=== PATIENT | male | born 1960 | race African-American/Black ===

== ENCOUNTER 2017-09-08 12:35 | Inpatient (IN) | payer OTHER ==
[2017-09-08 14:14] VITALS: BMI 28.8
--- NOTE | 2017-09-08 15:29 | HP ---
CIWA Score - CIWA Score Nausea/Vomitin Muscle Tremors: 4-Moderate,w/Arms Extend Anxiety: 2 Agitation: 1-Slight > Activity Paroxysmal Sweats: 3 Orientation: 0-Oriented Tacttile Disturbances: 1-Very Mild Itch/Numbness Auditory Disturbances: 0-None Visual Disturbances: 3-Moderate Sensitivity Headache: 2-Mild CIWA-Ar Total Score: 21 Admission ROS BHS - HPI Chief Complaint: "I just want to stop drinking and get it together.' Pt. is here to Detox from Alcohol. Allergies/Adverse Reactions: Allergies Allergy/AdvReac Type Severity Reaction Status Date / Time No Known Allergies Allergy Verified 09/08/17 14:58 History of Present Illness: Pt. is a 56 YO male here to detox from Alcohol. Pt. has had multiple previous Detox admissions at [facility] in the past and has signed out AMA on several of those admissions. Last Detox admission at [facility]: 08/2016. Exam Limitations: No Limitations - Ebola screening Have you traveled outside of the country in the last 21 days: No Have you had contact with anyone from an Ebola affected area: No Have you been sick,other than usual withdrawal symptoms: No Do you have a fever: No - Review of Systems Constitutional: Diaphoresis, Loss of Appetite, Malaise, Night Sweats, Changes in sleep, Unexplained wgt Loss (Lost approx. 15 lbs. over the last 1 month.) EENT: reports: Nose Congestion, Sinus Pressure Respiratory: reports: No Symptoms reported Cardiac: reports: No Symptoms Reported GI: reports: Diarrhea, Nausea, Poor Appetite, Vomiting : reports: No Symptoms Reported Musculoskeletal: reports: No Symptoms Reported Integumentary: reports: No Symptoms Reported Neuro: reports: Headache, Tremors Endocrine: reports: No Symptoms Reported Hematology: reports: No Symptoms Reported Psychiatric: reports: Judgement Intact, Mood/Affect Appropiate, Orientated x3, Anxious Other Systems: Reviewed and Negative Patient History - Patient Medical History Hx Anemia: No Hx Asthma: No Hx Chronic Obstructive Pulmonary Disease (COPD): No Hx Cancer: No Hx Cardiac Disorders: No Hx Congestive Heart Failure: No Hx Hypertension: Yes (Stopped taking Lisinopril approx. 1 month ago B/C he ran out.) Hx Hypercholesterolemia: No Hx Pacemaker: No HX Cerebrovascular Accident: No Hx Seizures: No Hx Dementia: No Hx Diabetes: No Hx Gastrointestinal Disorders: No Hx Liver Disease: No Hx Genitourinary Disorders: No Hx Sexually Transmitted Disorders: No Hx Renal Disease (ESRD): No Hx Thyroid Disease: No Hx Human Immunodeficiency Virus (HIV): No (Last tested: 04/2016: NEGATIVE.) Hx Hepatitis C: No (Last tested: 06/2015: NEGATIVE.) Hx Depression: No Hx Suicide Attempt: No (PATIENT DENIES CURRENT SI / HI.) Hx Bipolar Disorder: No Hx Schizophrenia: No Other Medical History: DENIES. - Patient Surgical History Past Surgical History: No Hx Neurologic Surgery: No Hx Cataract Extraction: No Hx Cardiac Surgery: No Hx Lung Surgery: No Hx Breast Surgery: No Hx Breast Biopsy: No Hx Abdominal Surgery: No Hx Appendectomy: No Hx Cholecystectomy: No Hx Genitourinary Surgery: No Hx Section: No Hx Orthopedic Surgery: No Anesthesia Reaction: No - PPD History Previous Implant?: Yes Documented Results: Negative w/proof Implanted On Prior [facility] Admission?: Yes Date: 02/27/16 Results: 0 mm PPD to be Administered?: Yes - Reproductive History Patient is a Female of Child Bearing Age (11 -55 yrs old): No (PATIENT IS MALE.) - Smoking Cessation Smoking history: Current some day smoker Have you smoked in the past 12 months: Yes Aproximately how many cigarettes per day: 1 Cigars Per Day: 0 Hx Chewing Tobacco Use: No Initiated information on smoking cessation: Yes 'Breaking Loose' booklet given: 09/08/17 (GIVEN ON UNIT.) - Substance & Tx. History Hx Alcohol Use: Yes Hx Substance Use: Yes Substance Use Type: Alcohol, Cocaine Hx Substance Use Treatment: Yes (Previous Detox admssions at [facility]; Last: 2015.) - Substances Abused Crack Route: Smoking Frequency: Daily Amount used: $30 Age of first use: 31 Date of Last Use: 09/08/17 Alcohol-vodka/beer Route: Oral Frequency: Daily Amount used: 2 pts./2-6 pks. Age of first use: 19 Date of Last Use: 09/08/17 Family Disease History - Family Disease History Family Disease History: Heart Disease: Mother (OA, Alcoholism; HTN), Other: Father (alcoholism), Mother Admission Physical Exam BHS - Vital Signs Vital Signs: Vital Signs - 24 hr 09/08/17 14:13 Temperature 97.4 F L Pulse Rate 108 H Respiratory 20 Rate Blood Pressure 139/91 - Physical General Appearance: Yes: No Apparent Distress, Nourished, Appropriately Dressed , Tremorous, Anxious HEENTM: Yes: Hearing grossly Normal, Normocephalic, Normal Voice, SERGEI, Pharynx Normal Respiratory: Yes: Chest Non-Tender, Lungs Clear, No Respiratory Distress, No Accessory Muscle Use Neck: Yes: No masses,lesions,Nodules, Supple, Trachea in good position Breast: Yes: Breast Exam Deferred Cardiology: Yes: Regular Rhythm, Regular Rate, S1, S2 Abdominal: Yes: Normal Bowel Sounds, Non Tender, Flat, Soft Genitourinary: Yes: Within Normal Limits Back: Yes: Normal Inspection Musculoskeletal: Yes: full range of Motion, Gait Steady Extremities: Yes: Normal Range of Motion, Non-Tender, Tremors Neurological: Yes: Fully Oriented, Alert, Normal Mood/Affect, Normal Response Integumentary: Yes: Normal Color, Dry, Warm Lymphatic: Yes: Within Normal Limits - Diagnostic (1) Alcohol dependence with uncomplicated withdrawal Current Visit: Yes Status: Acute (2) Hypertension Current Visit: Yes Status: Chronic Qualifiers: Hypertension type: essential hypertension Qualified Code(s): I10 - Essential (primary) hypertension; I10 - Essential (primary) hypertension; I10 - Essential (primary) hypertension (3) Nicotine dependence Current Visit: Yes Status: Chronic Qualifiers: Nicotine product type: cigarettes Substance use status: uncomplicated Qualified Code(s): F17.210 - Nicotine dependence, cigarettes, uncomplicated; F17.210 - Nicotine dependence, cigarettes, uncomplicated (4) Cocaine dependence, uncomplicated Current Visit: Yes Status: Acute Cleared for Admission [facility] - Detox or Rehab [facility] Level of Care: Medically Managed (PATIENT ENCOURAGED TO COMPLETE DETOX REGIMEN WHILE ADMITTED FOR DETOX AND ADVISED THAT IF HE SIGNS OUT AGAINST MEDICAL ADVICE AGAIN FOR THIS DETOX ADMISSION, THEN IT MIGHT JEOPARDIZE POSSIBLE FUTURE DETOX ADMISSIONS (IF NECESSARY). PATIENT VERBALIZED UNDERSTANDING OF RECOMMENDATION.) Detox Regimen/Protocol: Librium S Breath Alcohol Content Breath Alcohol Content: 0 Urine Drug Screen - Results Drug Screen Negative: No Urine Drug Screen Results: CRISTOFER-Cocaine, BZO-Benzodiazepines
[2017-09-08] MEDS ORDERED: IBUPROFEN 400 MG TABLET (FP) PO PRN (15:53)
[2017-09-08] MEDS ORDERED: MAGNESIUM CITRATE 300 ML BOTTLE PO PRN (15:53)
[2017-09-08] MEDS ORDERED: MENTHOL/PHENOL 1 EACH UD MM PRN (15:53)
[2017-09-08] MEDS ORDERED: ACETAMINOPHEN 325 MG TABLET (FP) PO PRN (15:53)
[2017-09-08] MEDS ORDERED: hydrOXYzine PAMOATE 50 MG CAPSULE (FP) PO PRN (15:53)
[2017-09-08] MEDS ORDERED: NICOTINE POLACRILEX 2 MG GUM BC PRN (15:53)
[2017-09-08] MEDS ORDERED: LOPERAMIDE HCL 2 MG CAPSULE PO PRN (15:53)
[2017-09-08] MEDS ORDERED: MAG HYDROX/AL HYDROX/SIMETH 30 ML UNIT-DOSE CUP PO PRN (15:53)
[2017-09-08] MEDS ORDERED: P-EPHED 60MG/TRIPROLIDI 2.5MG TABLET PO PRN (15:53)
[2017-09-08] MEDS ORDERED: chlordiazePOXIDE HCL 25 MG CAPSULE PO PRN (15:53)
[2017-09-08] MEDS ORDERED: diphenhydrAMINE HCL 50 MG CAPSULE PO PRN (15:53)
[2017-09-08] MEDS ORDERED: guaiFENesin/D-METHORPHAN HB 10 ML UNIT-DOSE CUPS PO PRN (15:53)
[2017-09-08] MEDS ORDERED: chlordiazePOXIDE HCL 25 MG CAPSULE PO ONE (15:53)
[2017-09-08] MEDS ORDERED: MAGNESIUM HYDROX 2400MG/30ML ORAL SUSPENSION 30 ML CUP PO PRN (15:53)
[2017-09-08] MEDS ORDERED: TETRAHYDROZOLINE HCL 1 DROP DROPS OU PRN (15:57)
[2017-09-08] MEDS: chlordiazePOXIDE HCL 25 MG CAPSULE PO SCH ×2 (17:26→22:23)
[2017-09-08] MEDS: ASPIRIN 81 MG CHEWABLE TABLETS PO SCH (17:26)
[2017-09-08] MEDS: LISINOPRIL 20 MG TABLET (FP) PO SCH (17:26)
[2017-09-08 22:22] LABS: URINE APPEARANCE SLCLOUDY; URINE BILIRUBIN NEGATIVE (NEGATIVE); URINE BLOOD NEGATIVE (NEGATIVE); URINE COLOR YELLOW; URINE GLUCOSE (UA) NEGATIVE (NEGATIVE); URINE KETONE NEGATIVE (NEGATIVE); URINE NITRITE NEGATIVE (NEGATIVE); URINE PROTEIN 1+ (NEGATIVE); URINE UROBILINOGEN NEGATIVE mg/dL (0.2-1.0)
[2017-09-08] MEDS: THIAMINE HCL 100 MG TABLET (FP) PO SCH (22:23)
[2017-09-08 23:46] LABS: URINE MUCUS 2+; URINE WBC FEW /hpf (3-5)
[2017-09-08 23:47] LABS: URINE SPERM FEW
[2017-09-09] MEDS: chlordiazePOXIDE HCL 25 MG CAPSULE PO SCH ×4 (06:36→22:29)
[2017-09-09 10:11] LABS: MCH 30.5 pg (25.7-33.7); MCHC 33.2 g/dl (32.0-35.9); MEAN CELL VOLUME 92.1 fl (80-96); MEAN PLT VOLUME 8.4 fl (7.5-11.1); PLATELET COUNT 182 K/MM3 (134-434); RDW 12.9 % (11.9-15.9); WHITE BLOOD COUNT 4.9 K/mm3 (4.0-10.0)
[2017-09-09 10:28] LABS: URINE LEUK ESTERASE Negative (NEGATIVE)
[2017-09-09] MEDS: PRENATAL VITAMINS W/ FOLIC ACID TABLET (FP) PO SCH (10:46)
[2017-09-09] MEDS: LISINOPRIL 20 MG TABLET (FP) PO SCH (10:46)
[2017-09-09] MEDS: ASPIRIN 81 MG CHEWABLE TABLETS PO SCH (10:46)
--- NOTE | 2017-09-09 10:48 | EKG ---
Test Reason : Blood Pressure : / mmHG Vent. Rate : 087 BPM Atrial Rate : 087 BPM P-R Int : 182 ms QRS Dur : 088 ms QT Int : 412 ms P-R-T Axes : 054 -22 045 degrees QTc Int : 495 ms NORMAL SINUS RHYTHM SEPTAL INFARCT , AGE UNDETERMINED ABNORMAL ECG NO PREVIOUS ECGS AVAILABLE Confirmed by MARIA ANTONIA COOK, DEE ([id number]) on 09/09/2017 10:47:47 AM Referred By: Confirmed By:DEE EM MD
[2017-09-09 11:06] LABS: ALBUMIN 2.9 g/dl (3.4-5.0); ALK PHOS 71 U/L (45-117); ANION GAP 8 (8-16); BILIRUBIN,TOTAL 0.8 mg/dL (0.2-1.0); CALCIUM 8.7 mg/dL (8.5-10.1); CO2 26 mmol/L (21-32); CREATININE 0.8 mg/dL (0.7-1.3); GLUCOSE,RANDOM 96 mg/dL (74-106); SGOT/AST 22 U/L (15-37); SGPT/ALT 34 U/L (12-78); TOT PROT 5.7 g/dl (6.4-8.2)
--- NOTE | 2017-09-09 11:20 | PN ---
[facility] CIWA - CIWA Score Nausea/Vomitin-No Nausea/No Vomiting Muscle Tremors: 4-Moderate,w/Arms Extend Anxiety: 4-Mod. Anxious/Guarded Agitation: 4-Moderately Restless Paroxysmal Sweats: 1-Minimal Palms Moist Orientation: 0-Oriented Tacttile Disturbances: 3-Moderate Itch/Numb/Burn Auditory Disturbances: 0-None Visual Disturbances: 0-None Headache: 0-None Present CIWA-Ar Total Score: 16 S Progress Note (SOAP) Subjective: ANXIETY,SWEATS,SLIGHT IRRITABILITY,SLEEPLESS NIGHT--WANTS AMBIEN AND STATES "[employer] DON'T WORK,AMBIEN WORKS FOR ME". DENIES PSYCH HX AND DECLINED PSYCH MANAGEMENT FOR INSOMNIA. ALERT O X 3. OOB EATING IN DAYROOM, GAIT STEADY. Objective: 09/09/17 11:19 Vital Signs Temperature 97.5 F L 09/09/17 09:14 Pulse Rate 71 09/09/17 09:14 Respiratory Rate 18 09/09/17 09:14 Blood Pressure 140/89 09/09/17 09:14 O2 Sat by Pulse Oximetry (%) Laboratory Last Values WBC 4.9 K/mm3 (4.0-10.0) D 09/09/17 07:00 RBC 4.12 M/mm3 (4.00-5.60) 09/09/17 07:00 Hgb 12.6 GM/dL (11.7-16.9) 09/09/17 07:00 Hct 38.0 % (35.4-49) 09/09/17 07:00 MCV 92.1 fl (80-96) 09/09/17 07:00 MCH 30.5 pg (25.7-33.7) 09/09/17 07:00 MCHC 33.2 g/dl (32.0-35.9) 09/09/17 07:00 RDW 12.9 % (11.9-15.9) 09/09/17 07:00 Plt Count 182 K/MM3 (134-434) 09/09/17 07:00 MPV 8.4 fl (7.5-11.1) D 09/09/17 07:00 Sodium 142 mmol/L (136-145) 09/09/17 07:00 Potassium 3.8 mmol/L (3.5-5.1) 09/09/17 07:00 Chloride 108 mmol/L (98-107) H 09/09/17 07:00 Carbon Dioxide 26 mmol/L (21-32) 09/09/17 07:00 Anion Gap 8 (8-16) 09/09/17 07:00 BUN 10 mg/dL (7-18) 09/09/17 07:00 Creatinine 0.8 mg/dL (0.7-1.3) 09/09/17 07:00 Creat Clearance w eGFR > 60 (>60) 09/09/17 07:00 Random Glucose 96 mg/dL (74-106) 09/09/17 07:00 Calcium 8.7 mg/dL (8.5-10.1) 09/09/17 07:00 Total Bilirubin 0.8 mg/dL (0.2-1.0) 09/09/17 07:00 AST 22 U/L (15-37) 09/09/17 07:00 ALT 34 U/L (12-78) D 09/09/17 07:00 Alkaline Phosphatase 71 U/L (45-117) 09/09/17 07:00 Total Protein 5.7 g/dl (6.4-8.2) L D 09/09/17 07:00 Albumin 2.9 g/dl (3.4-5.0) L D 09/09/17 07:00 Urine Color Yellow 09/08/17 22:10 Urine Appearance Slcloudy 09/08/17 22:10 Urine pH 6.0 (5.0-8.0) 09/08/17 22:10 Ur Specific [place] 1.025 (1.005-1.025) 09/08/17 22:10 Urine Protein 1+ (NEGATIVE) H 09/08/17 22:10 Urine Glucose (UA) Negative (NEGATIVE) 09/08/17 22:10 Urine Ketones Negative (NEGATIVE) 09/08/17 22:10 Urine Blood Negative (NEGATIVE) 09/08/17 22:10 Urine Nitrite Negative (NEGATIVE) 09/08/17 22:10 Urine Bilirubin Negative (NEGATIVE) 09/08/17 22:10 Urine Urobilinogen Negative mg/dL (0.2-1.0) 09/08/17 22:10 Ur Leukocyte Esterase Negative (NEGATIVE) 09/08/17 22:10 Urine WBC Few /hpf (3-5) 09/08/17 22:10 Urine Mucus 2+ 09/08/17 22:10 Assessment: 09/09/17 11:19 WITHDRAWAL SX Plan: CONTINUE DETOX INCREASE PO FLUIDS. AMBIEN 10 MG PO AT BEDTIME PRN X 3 DOSES.
[2017-09-09 15:16] LABS: HIV 1 & 2 AB NEGATIVE; HIV 1 AGp24 NEGATIVE
[2017-09-09] MEDS ORDERED: ZOLPIDEM TARTRATE 10 MG TABLET (PARK CARE ONLY) PO PRN (22:00)
[2017-09-09] MEDS: THIAMINE HCL 100 MG TABLET (FP) PO SCH (22:29)
[2017-09-10] MEDS ORDERED: diazePAM 5 MG TABLET PO SCH ×2 (06:00→09:32)
[2017-09-10] MEDS: chlordiazePOXIDE HCL 25 MG CAPSULE PO SCH (06:20)
[2017-09-10] MEDS ORDERED: chlordiazePOXIDE HCL 25 MG CAPSULE PO SCH (09:23)
--- NOTE | 2017-09-10 09:23 | PN ---
BHS CIWA - CIWA Score Nausea/Vomitin-No Nausea/No Vomiting Muscle Tremors: None Anxiety: 1-Mildly Anxious Agitation: 1-Slight > Activity Paroxysmal Sweats: No Perspiration Orientation: 0-Oriented Tacttile Disturbances: 0-None Auditory Disturbances: 0-None Visual Disturbances: 0-None Headache: 0-None Present CIWA-Ar Total Score: 2 BHS Progress Note (SOAP) Subjective: slight anxiety, thinks libirum is to high, interrtuped sleep Objective: 09/10/17 09:22 Vital Signs - 24 hr 09/09/17 09/09/17 09/09/17 14:18 17:42 22:23 Temperature 96.8 F L 98.1 F 98.3 F Pulse Rate 81 74 95 H Respiratory 18 18 18 Rate Blood Pressure 140/91 116/72 120/89 09/10/17 09/10/17 09/10/17 00:37 03:41 06:15 Temperature 96.9 F L Pulse Rate 69 Respiratory 18 18 16 Rate Blood Pressure 146/99 elevated bp Assessment: 09/10/17 09:22 withdrawal sx Plan: cont detox, fluids, will lower dose scheduled ATC.
--- NOTE | 2017-09-10 09:24 | PN ---
BHS Progress Note Note: patient reports stomach upset with libirum would lie to switch to valium
[2017-09-10] MEDS: PRENATAL VITAMINS W/ FOLIC ACID TABLET (FP) PO SCH (10:47)
[2017-09-10] MEDS: ASPIRIN 81 MG CHEWABLE TABLETS PO SCH (10:47)
[2017-09-10] MEDS: LISINOPRIL 20 MG TABLET (FP) PO SCH (10:47)
[2017-09-10 13:47] VITALS: BP 131/90; PULSE 82; TEMP 98.1
--- NOTE | 2017-09-10 15:30 | DS ---
[facility] Detox Discharge Summary Admission Date: 09/08/17 Discharge Date: 09/10/17 - History Present History: Alcohol Dependence, Cocaine Dependence Additional Comments: PATIENT DOES NOT WISH TO STAY TO COMPLETE DETOX REGIMEN. RISKS OF LEAVING DETOX UNIT PRIOR TO COMPLETION OF DETOX REGIMEN DISCUSSED WITH PATIENT. PATIENT OFFERED PRESCRIPTIONS FOR MEDICATIONS TAKEN PRIOR TO ADMISSION TO DETOX; HOWEVER , PATIENT DECLINED. PATIENT LEFT DETOX UNIT IN STABLE MEDICAL CONDITION. Pertinent Past History: Hypertension. - Physical Exam Results Vital Signs: Vital Signs Temperature 98.1 F 09/10/17 13:47 Pulse Rate 82 09/10/17 13:47 Respiratory Rate 18 09/10/17 13:47 Blood Pressure 131/90 09/10/17 13:47 O2 Sat by Pulse Oximetry (%) Pertinent Admission Physical Exam Findings: WITHDRAWAL SYMPTOMS. Laboratory Tests 09/08/17 09/08/17 09/09/17 09:00 22:10 07:00 WBC RBC Hgb Hct MCV MCH MCHC RDW Plt Count MPV Sodium Potassium Chloride Carbon Dioxide Anion Gap BUN Creatinine Creat Clearance w eGFR Random Glucose Calcium Total Bilirubin AST ALT Alkaline Phosphatase Total Protein Albumin Urine Color Yellow Urine Appearance Slcloudy Urine pH 6.0 Ur Specific [place] 1.025 Urine Protein 1+ H Urine Glucose (UA) Negative Urine Ketones Negative Urine Blood Negative Urine Nitrite Negative Urine Bilirubin Negative Urine Urobilinogen Negative Ur Leukocyte Esterase Negative Urine WBC Few Urine Mucus 2+ RPR Titer Hepatitis C Antibody <0.1 HIV 1&2 Antibody Screen Negative HIV P24 Antigen Negative 09/09/17 09/09/17 09/09/17 07:00 07:00 07:00 WBC 4.9 D RBC 4.12 Hgb 12.6 Hct 38.0 MCV 92.1 MCH 30.5 MCHC 33.2 RDW 12.9 Plt Count 182 MPV 8.4 D Sodium 142 Potassium 3.8 Chloride 108 H Carbon Dioxide 26 Anion Gap 8 BUN 10 Creatinine 0.8 Creat Clearance w eGFR > 60 Random Glucose 96 Calcium 8.7 Total Bilirubin 0.8 AST 22 ALT 34 D Alkaline Phosphatase 71 Total Protein 5.7 L D Albumin 2.9 L D Urine Color Urine Appearance Urine pH Ur Specific [place] Urine Protein Urine Glucose (UA) Urine Ketones Urine Blood Urine Nitrite Urine Bilirubin Urine Urobilinogen Ur Leukocyte Esterase Urine WBC Urine Mucus RPR Titer Nonreactive Hepatitis C Antibody HIV 1&2 Antibody Screen HIV P24 Antigen LABS NOTED. - Treatment Hospital Course: Detoxed Safely - Diagnosis (1) Alcohol dependence with uncomplicated withdrawal Current Visit: Yes Status: Acute (2) Hypertension Current Visit: Yes Status: Chronic Qualifiers: Hypertension type: essential hypertension Qualified Code(s): I10 - Essential (primary) hypertension; I10 - Essential (primary) hypertension; I10 - Essential (primary) hypertension (3) Nicotine dependence Current Visit: Yes Status: Chronic Qualifiers: Nicotine product type: cigarettes Substance use status: uncomplicated Qualified Code(s): F17.210 - Nicotine dependence, cigarettes, uncomplicated; F17.210 - Nicotine dependence, cigarettes, uncomplicated (4) Cocaine dependence, uncomplicated Current Visit: Yes Status: Acute - AMA Did Patient Leave Against Medical Advice: Yes (PATIENT DOES NOT WISH TO STAY TO COMPLETE DETOX REGIMEN.)
[2017-09-10] MEDS ORDERED: chlordiazePOXIDE 5 MG CAPSULE PO SCH (17:00)
[2017-09-11] MEDS ORDERED: diazePAM 5 MG TABLET PO SCH ×3 (10:00)
[2017-09-11] MEDS ORDERED: chlordiazePOXIDE HCL 10 MG CAPSULE PO SCH (17:00)
[2017-09-12] MEDS ORDERED: diazePAM 5 MG TABLET PO SCH (10:00)
== END 2017-09-10 15:24 | disposition left against medical advice (07) | DRG 770 ==
LOC: YASAS 12:35 → Y3N 15:55
PROVIDERS: ADMIT Internal Medicine; ATTEND Internal Medicine
PROC: HZ2ZZZZ Detoxification Services for Substance Abuse Treatment (ICD-10-PCS; principal; 2017-09-08)
DX: F10.230 Alcohol dependence with withdrawal, uncomplicated (principal); F14.20 Cocaine dependence, uncomplicated; F17.210 Nicotine dependence, cigarettes, uncomplicated; G47.00 Insomnia, unspecified; I10 Essential (primary) hypertension
CPT/HCPCS: 36415; 80053; 81003; 81015; 85027; 86593; 86803; 87389; 93005; 93010

== ENCOUNTER 2017-10-19 10:55 | Inpatient (IN) | payer OTHER ==
[2017-10-19 11:10] VITALS: BMI 25.7
[2017-10-19] MEDS ORDERED: MAGNESIUM HYDROX 2400MG/30ML ORAL SUSPENSION 30 ML CUP PO PRN (14:08)
[2017-10-19] MEDS ORDERED: NICOTINE POLACRILEX 2 MG GUM BC PRN (14:08)
[2017-10-19] MEDS ORDERED: chlordiazePOXIDE HCL 25 MG CAPSULE PO PRN (14:08)
[2017-10-19] MEDS ORDERED: P-EPHED 60MG/TRIPROLIDI 2.5MG TABLET PO PRN (14:08)
[2017-10-19] MEDS ORDERED: MENTHOL/PHENOL 1 EACH UD MM PRN (14:08)
[2017-10-19] MEDS ORDERED: guaiFENesin/D-METHORPHAN HB 10 ML UNIT-DOSE CUPS PO PRN (14:08)
[2017-10-19] MEDS ORDERED: MAGNESIUM CITRATE 300 ML BOTTLE PO PRN (14:08)
[2017-10-19] MEDS ORDERED: ACETAMINOPHEN 325 MG TABLET (FP) PO PRN (14:08)
[2017-10-19] MEDS ORDERED: LOPERAMIDE HCL 2 MG CAPSULE PO PRN (14:08)
[2017-10-19] MEDS ORDERED: hydrOXYzine PAMOATE 50 MG CAPSULE (FP) PO PRN (14:08)
[2017-10-19] MEDS ORDERED: MAG HYDROX/AL HYDROX/SIMETH 30 ML UNIT-DOSE CUP PO PRN (14:08)
[2017-10-19] MEDS ORDERED: IBUPROFEN 400 MG TABLET (FP) PO PRN (14:08)
--- NOTE | 2017-10-19 14:08 | HP ---
CIWA Score - CIWA Score Nausea/Vomitin-Mild Nausea/No Vomiting Muscle Tremors: 4-Moderate,w/Arms Extend Anxiety: 3 Agitation: 3 Paroxysmal Sweats: 3 Orientation: 0-Oriented Tacttile Disturbances: 0-None Auditory Disturbances: 0-None Visual Disturbances: 0-None Headache: 1-Very Mild CIWA-Ar Total Score: 15 Admission ROS BHS - HPI Chief Complaint: I am here for detox. Allergies/Adverse Reactions: Allergies Allergy/AdvReac Type Severity Reaction Status Date / Time No Known Allergies Allergy Verified 10/19/17 11:26 History of Present Illness: pt is a 56yrold male with a history of alcohol and cocaine dependence seeking detox for treatment. Exam Limitations: No Limitations - Ebola screening Have you traveled outside of the country in the last 21 days: No Have you had contact with anyone from an Ebola affected area: No Have you been sick,other than usual withdrawal symptoms: No Do you have a fever: No - Review of Systems Constitutional: Chills, Diaphoresis, Loss of Appetite, Night Sweats EENT: reports: No Symptoms Reported Respiratory: reports: No Symptoms reported Cardiac: reports: No Symptoms Reported GI: reports: Poor Appetite, Poor Fluid Intake : reports: No Symptoms Reported Musculoskeletal: reports: No Symptoms Reported Integumentary: reports: Flushing, Sweating Neuro: reports: Headache, Tingling, Tremors Endocrine: reports: Excessive Sweating, Flushing, Intolerance to Cold, Intolerance to Heat Hematology: reports: No Symptoms Reported Psychiatric: reports: No Sypmtoms Reported, Judgement Intact, Mood/Affect Appropiate, Orientated x3, Agitated, Anxious Other Systems: Reviewed and Negative Patient History - Patient Medical History Hx Anemia: No Hx Asthma: No Hx Chronic Obstructive Pulmonary Disease (COPD): No Hx Cancer: No Hx Cardiac Disorders: No Hx Congestive Heart Failure: No Hx Hypertension: Yes Hx Hypercholesterolemia: No Hx Pacemaker: No HX Cerebrovascular Accident: No Hx Seizures: No Hx Dementia: No Hx Diabetes: No Hx Gastrointestinal Disorders: No Hx Liver Disease: No Hx Genitourinary Disorders: No Hx Sexually Transmitted Disorders: No Hx Renal Disease (ESRD): No Hx Thyroid Disease: No Hx Human Immunodeficiency Virus (HIV): No (Last tested: 04/2016: NEGATIVE.) Hx Hepatitis C: No (Last tested: 06/2015: NEGATIVE.) Hx Depression: No Hx Suicide Attempt: No (denies) Hx Bipolar Disorder: No Hx Schizophrenia: No - Patient Surgical History Past Surgical History: No Hx Neurologic Surgery: No Hx Cataract Extraction: No Hx Cardiac Surgery: No Hx Lung Surgery: No Hx Breast Surgery: No Hx Breast Biopsy: No Hx Abdominal Surgery: No Hx Appendectomy: No Hx Cholecystectomy: No Hx Genitourinary Surgery: No Hx Section: No Hx Orthopedic Surgery: No Anesthesia Reaction: No - PPD History Previous Implant?: Yes Documented Results: Negative w/proof Implanted On Prior [facility] Admission?: Yes Date: 09/10/17 Results: 0 mm PPD to be Administered?: No - Reproductive History Patient is a Female of Child Bearing Age (11 -55 yrs old): No - Smoking Cessation Smoking history: Current some day smoker Have you smoked in the past 12 months: No Aproximately how many cigarettes per day: 1 If you are a former smoker, when did you quit?: at age 25 Cigars Per Day: 0 Hx Chewing Tobacco Use: No Initiated information on smoking cessation: Yes 'Breaking Loose' booklet given: 10/19/17 - Substance & Tx. History Hx Alcohol Use: Yes Hx Substance Use: Yes Substance Use Type: Alcohol, Cocaine Hx Substance Use Treatment: Yes ([facility] 08/2017) - Substances Abused Crack Route: Smoking Frequency: 1-2 times per week Amount used: $30 Age of first use: 36 Date of Last Use: 10/18/17 Alcohol-beer/vodka Route: Oral Frequency: Daily Amount used: 2-6 pks./2 pts. Age of first use: 19 Date of Last Use: 10/19/17 Family Disease History - Family Disease History Family Disease History: Heart Disease: Mother (OA, Alcoholism; HTN), Other: Father (alcoholism), Mother Admission Physical Exam BHS - Vital Signs Vital Signs: Vital Signs - 24 hr 10/19/17 11:05 Temperature 98.9 F Pulse Rate 98 H Respiratory 18 Rate Blood Pressure 150/100 - Physical General Appearance: Yes: Appropriately Dressed, Moderate Distress, Tremorous, Irritable, Sweating, Anxious HEENTM: Yes: Hearing grossly Normal, Normal Voice, Rhinorrhea Respiratory: Yes: Lungs Clear, Normal Breath Sounds, No Respiratory Distress Neck: Yes: No masses,lesions,Nodules Breast: Yes: Within Normal Limits Cardiology: Yes: Regular Rhythm, Regular Rate, S1, S2 Abdominal: Yes: Normal Bowel Sounds, Non Tender, Flat Genitourinary: Yes: Within Normal Limits Back: Yes: Normal Inspection Musculoskeletal: Yes: full range of Motion Extremities: Yes: Normal Capillary Refill, Normal Inspection, Tremors Neurological: Yes: Fully Oriented, Alert, Normal Response Integumentary: Yes: Normal Color, Diaphoresis Lymphatic: Yes: Within Normal Limits - Diagnostic (1) Alcohol dependence with uncomplicated withdrawal Current Visit: Yes Status: Chronic (2) Cocaine dependence Current Visit: Yes Status: Chronic Qualifiers: Substance use status: uncomplicated (3) Hypertension Current Visit: Yes Status: Chronic Qualifiers: Hypertension type: essential hypertension (4) Nicotine dependence Current Visit: Yes Status: Chronic Qualifiers: Nicotine product type: cigarettes Substance use status: uncomplicated Qualified Code(s): F17.210 - Nicotine dependence, cigarettes, uncomplicated Cleared for Admission [facility] - Detox or Rehab [facility] Level of Care: Medically Managed Detox Regimen/Protocol: Librium S Breath Alcohol Content Breath Alcohol Content: 0.115 Urine Drug Screen - Results Drug Screen Negative: No Urine Drug Screen Results: CRISTOFER-Cocaine
[2017-10-19] MEDS ORDERED: chlordiazePOXIDE HCL 25 MG CAPSULE PO ONE (14:45)
[2017-10-19] MEDS: chlordiazePOXIDE HCL 25 MG CAPSULE PO SCH ×2 (17:27→22:01)
[2017-10-19] MEDS: THIAMINE HCL 100 MG TABLET (FP) PO SCH (22:01)
[2017-10-19 23:29] LABS: URINE APPEARANCE CLEAR; URINE BILIRUBIN NEGATIVE (NEGATIVE); URINE BLOOD NEGATIVE (NEGATIVE); URINE COLOR STRAW; URINE GLUCOSE (UA) NEGATIVE (NEGATIVE); URINE KETONE NEGATIVE (NEGATIVE); URINE NITRITE NEGATIVE (NEGATIVE); URINE PROTEIN NEGATIVE (NEGATIVE); URINE UROBILINOGEN NEGATIVE mg/dL (0.2-1.0)
[2017-10-20] MEDS: chlordiazePOXIDE HCL 25 MG CAPSULE PO SCH ×4 (06:19→22:03)
[2017-10-20] MEDS ORDERED: ASPIRIN 81 MG CHEWABLE TABLETS PO SCH (10:00)
[2017-10-20] MEDS ORDERED: PRENATAL VITAMINS W/ FOLIC ACID TABLET (FP) PO SCH (10:00)
[2017-10-20] MEDS ORDERED: LISINOPRIL 10 MG TABLET (FP) PO SCH ×2 (10:00)
--- NOTE | 2017-10-20 10:32 | EKG ---
Test Reason : Blood Pressure : / mmHG Vent. Rate : 091 BPM Atrial Rate : 091 BPM P-R Int : 180 ms QRS Dur : 088 ms QT Int : 404 ms P-R-T Axes : 043 -26 043 degrees QTc Int : 496 ms NORMAL SINUS RHYTHM SEPTAL INFARCT (CITED ON OR BEFORE 08-SEP-2017) ABNORMAL ECG WHEN COMPARED WITH ECG OF 08-SEP-2017 17:39, NO SIGNIFICANT CHANGE WAS FOUND Confirmed by CHE COOK, VEGA ([id number]) on 10/20/2017 10:32:21 AM Referred By: Sarah Jimenez Confirmed By:VEGA BOLTON MD
[2017-10-20 10:36] LABS: HIV 1 & 2 AB NEGATIVE; HIV 1 AGp24 NEGATIVE
[2017-10-20 11:00] LABS: URINE LEUK ESTERASE Negative (NEGATIVE)
[2017-10-20 11:02] LABS: MCH 30.2 pg (25.7-33.7); MCHC 32.2 g/dl (32.0-35.9); MEAN CELL VOLUME 93.9 fl (80-96); MEAN PLT VOLUME 9.7 fl (7.5-11.1); PLATELET COUNT 235 K/MM3 (134-434); RDW 13.4 % (11.9-15.9); WHITE BLOOD COUNT 7.6 K/mm3 (4.0-10.0)
[2017-10-20 11:44] LABS: ALBUMIN 4.1 g/dl (3.4-5.0); ALK PHOS 71 U/L (45-117); ANION GAP 12 (8-16); BILIRUBIN,TOTAL 0.8 mg/dL (0.2-1.0); CALCIUM 8.9 mg/dL (8.5-10.1); CO2 21 mmol/L (21-32); CREATININE 0.8 mg/dL (0.7-1.3); GLUCOSE,RANDOM 92 mg/dL (74-106); SGOT/AST 25 U/L (15-37); SGPT/ALT 26 U/L (12-78); TOT PROT 7.4 g/dl (6.4-8.2)
--- NOTE | 2017-10-20 17:49 | PN ---
S CIWA - CIWA Score Nausea/Vomitin Muscle Tremors: 3 Anxiety: 3 Agitation: 3 Paroxysmal Sweats: 3 Orientation: 0-Oriented Tacttile Disturbances: 1-Very Mild Itch/Numbness Auditory Disturbances: 0-None Visual Disturbances: 0-None Headache: 1-Very Mild CIWA-Ar Total Score: 17 S Progress Note (SOAP) Subjective: nausea, sweats, interrupted sleep, anxiety, tremors Objective: 10/20/17 17:48 Vital Signs - 8 hr 10/20/17 10/20/17 10:11 15:21 Temperature 98.1 F 98.1 F Pulse Rate 90 91 H Respiratory 20 18 Rate Blood Pressure 125/92 115/88 Laboratory Tests 10/19/17 10/19/17 10/20/17 14:00 22:00 06:00 WBC 7.6 D RBC 4.55 Hgb 13.7 Hct 42.7 MCV 93.9 MCH 30.2 MCHC 32.2 RDW 13.4 Plt Count 235 D MPV 9.7 D Sodium Potassium Chloride Carbon Dioxide Anion Gap BUN Creatinine Creat Clearance w eGFR Random Glucose Calcium Total Bilirubin AST ALT Alkaline Phosphatase Total Protein Albumin Urine Color Straw Urine Appearance Clear Urine pH 7.0 Ur Specific [place] 1.005 Urine Protein Negative Urine Glucose (UA) Negative Urine Ketones Negative Urine Blood Negative Urine Nitrite Negative Urine Bilirubin Negative Urine Urobilinogen Negative HIV 1&2 Antibody Screen Negative HIV P24 Antigen Negative 10/20/17 06:00 WBC RBC Hgb Hct MCV MCH MCHC RDW Plt Count MPV Sodium 140 Potassium 3.7 Chloride 107 Carbon Dioxide 21 Anion Gap 12 BUN 6 L D Creatinine 0.8 Creat Clearance w eGFR > 60 Random Glucose 92 Calcium 8.9 Total Bilirubin 0.8 AST 25 ALT 26 D Alkaline Phosphatase 71 Total Protein 7.4 D Albumin 4.1 D Urine Color Urine Appearance Urine pH Ur Specific [place] Urine Protein Urine Glucose (UA) Urine Ketones Urine Blood Urine Nitrite Urine Bilirubin Urine Urobilinogen HIV 1&2 Antibody Screen HIV P24 Antigen Assessment: 10/20/17 17:48 withdrawwal sx - cont detox, fluids, encourage ambulation
[2017-10-20] MEDS: THIAMINE HCL 100 MG TABLET (FP) PO SCH (22:02)
[2017-10-21] MEDS: chlordiazePOXIDE HCL 25 MG CAPSULE PO SCH (06:19)
[2017-10-21 06:30] VITALS: TEMP 97.7
[2017-10-21 09:40] VITALS: BP 139/99; PULSE 77
--- NOTE | 2017-10-21 10:56 | DS ---
[facility] Detox Discharge Summary Admission Date: 10/19/17 Discharge Date: 10/21/17 - History Present History: Alcohol Dependence, Cocaine Dependence Additional Comments: 56 years old male admitted to detox with complaint of alcohol and cocaine dependence left against medical advice. risks and consequences of patient's action explained to him. patient verbalized understanding and signed the AMA form. Pertinent Past History: Epididymitis, HTN - Physical Exam Results Vital Signs: Vital Signs Temperature 97.7 F 10/21/17 09:40 Pulse Rate 77 10/21/17 09:40 Respiratory Rate 20 10/21/17 09:40 Blood Pressure 139/99 10/21/17 09:40 O2 Sat by Pulse Oximetry (%) Laboratory Last Values WBC 7.6 K/mm3 (4.0-10.0) D 10/20/17 06:00 RBC 4.55 M/mm3 (4.00-5.60) 10/20/17 06:00 Hgb 13.7 GM/dL (11.7-16.9) 10/20/17 06:00 Hct 42.7 % (35.4-49) 10/20/17 06:00 MCV 93.9 fl (80-96) 10/20/17 06:00 MCH 30.2 pg (25.7-33.7) 10/20/17 06:00 MCHC 32.2 g/dl (32.0-35.9) 10/20/17 06:00 RDW 13.4 % (11.9-15.9) 10/20/17 06:00 Plt Count 235 K/MM3 (134-434) D 10/20/17 06:00 MPV 9.7 fl (7.5-11.1) D 10/20/17 06:00 Sodium 140 mmol/L (136-145) 10/20/17 06:00 Potassium 3.7 mmol/L (3.5-5.1) 10/20/17 06:00 Chloride 107 mmol/L (98-107) 10/20/17 06:00 Carbon Dioxide 21 mmol/L (21-32) 10/20/17 06:00 Anion Gap 12 (8-16) 10/20/17 06:00 BUN 6 mg/dL (7-18) L D 10/20/17 06:00 Creatinine 0.8 mg/dL (0.7-1.3) 10/20/17 06:00 Creat Clearance w eGFR > 60 (>60) 10/20/17 06:00 Random Glucose 92 mg/dL (74-106) 10/20/17 06:00 Calcium 8.9 mg/dL (8.5-10.1) 10/20/17 06:00 Total Bilirubin 0.8 mg/dL (0.2-1.0) 10/20/17 06:00 AST 25 U/L (15-37) 10/20/17 06:00 ALT 26 U/L (12-78) D 10/20/17 06:00 Alkaline Phosphatase 71 U/L (45-117) 10/20/17 06:00 Total Protein 7.4 g/dl (6.4-8.2) D 10/20/17 06:00 Albumin 4.1 g/dl (3.4-5.0) D 10/20/17 06:00 Urine Color Straw 10/19/17 22:00 Urine Appearance Clear 10/19/17 22:00 Urine pH 7.0 (5.0-8.0) 10/19/17 22:00 Ur Specific [place] 1.005 (1.001-1.035) 10/19/17 22:00 Urine Protein Negative (NEGATIVE) 10/19/17 22:00 Urine Glucose (UA) Negative (NEGATIVE) 10/19/17 22:00 Urine Ketones Negative (NEGATIVE) 10/19/17 22:00 Urine Blood Negative (NEGATIVE) 10/19/17 22:00 Urine Nitrite Negative (NEGATIVE) 10/19/17 22:00 Urine Bilirubin Negative (NEGATIVE) 10/19/17 22:00 Urine Urobilinogen Negative mg/dL (0.2-1.0) 10/19/17 22:00 HIV 1&2 Antibody Screen Negative 10/19/17 14:00 HIV P24 Antigen Negative 10/19/17 14:00 reviewed Pertinent Admission Physical Exam Findings: Withdrawal symptoms - Medication Discharge Medications: Ambulatory Orders NK [No Known Home Medication] 10/19/17 - Diagnosis (1) Alcohol dependence with uncomplicated withdrawal Current Visit: Yes Status: Chronic (2) Cocaine dependence Current Visit: Yes Status: Chronic Qualifiers: Substance use status: uncomplicated (3) Hypertension Current Visit: Yes Status: Chronic Qualifiers: Hypertension type: essential hypertension - AMA Did Patient Leave Against Medical Advice: Yes
[2017-10-21] MEDS ORDERED: chlordiazePOXIDE 5 MG CAPSULE PO SCH (17:00)
[2017-10-22] MEDS ORDERED: chlordiazePOXIDE HCL 10 MG CAPSULE PO SCH (17:00)
== END 2017-10-21 10:00 | disposition left against medical advice (07) | DRG 770 ==
LOC: YASAS 10:55 → Y6N 14:01
PROVIDERS: ADMIT Internal Medicine; ATTEND Internal Medicine
PROC: HZ2ZZZZ Detoxification Services for Substance Abuse Treatment (ICD-10-PCS; principal; 2017-10-19)
DX: F10.230 Alcohol dependence with withdrawal, uncomplicated (principal); F14.20 Cocaine dependence, uncomplicated; F17.210 Nicotine dependence, cigarettes, uncomplicated; I10 Essential (primary) hypertension
CPT/HCPCS: 36415; 80053; 81003; 85027; 86593; 87389; 93005; 93010

== ENCOUNTER 2018-05-31 15:08 | Inpatient (IN) | payer OTHER ==
[2018-05-31 15:47] VITALS: BMI 28.2
--- NOTE | 2018-05-31 19:14 | HP ---
CIWA Score - CIWA Score Nausea/Vomitin Muscle Tremors: 2 Anxiety: 3 Agitation: 2 Paroxysmal Sweats: 3 Orientation: 0-Oriented Tacttile Disturbances: 0-None Auditory Disturbances: 0-None Visual Disturbances: 0-None Headache: 0-None Present CIWA-Ar Total Score: 13 Admission ROS BHS - HPI Chief Complaint: alcohol withdrawal symptoms Allergies/Adverse Reactions: Allergies Allergy/AdvReac Type Severity Reaction Status Date / Time No Known Allergies Allergy Verified 05/31/18 18:26 History of Present Illness: 57 yo male with hx of alcohol and crack / cocaine dependence is here seeking detox, this is one of multiple admissions. utox positive for benzo, denies any recent visit to the emergency room, denies Benzo use, attributes to cocaine use. last detox 10/21/17 - 10/21/17 [facility] left AMA. PMHX: HTN, denies psychiatric problems. Denies suicidal / homicidal ideation or hx of suicide attempt. Longest period of sobriety 5 years. Denies hx of seizures or blackouts. Exam Limitations: No Limitations - Ebola screening Have you traveled outside of the country in the last 21 days: No (N) Have you had contact with anyone from an Ebola affected area: No Have you been sick,other than usual withdrawal symptoms: No Do you have a fever: No - Review of Systems Constitutional: Chills, Diaphoresis, Changes in sleep EENT: reports: No Symptoms Reported Respiratory: reports: No Symptoms reported Cardiac: reports: No Symptoms Reported GI: reports: Nausea, Poor Fluid Intake : reports: No Symptoms Reported Musculoskeletal: reports: No Symptoms Reported Integumentary: reports: No Symptoms Reported Neuro: reports: No Symptoms reported Endocrine: reports: Increased Thirst Hematology: reports: No Symptoms Reported Psychiatric: reports: Orientated x3, Anxious Other Systems: Reviewed and Negative Patient History - Patient Medical History Hx Anemia: No Hx Asthma: No Hx Chronic Obstructive Pulmonary Disease (COPD): No Hx Cancer: No Hx Cardiac Disorders: No Hx Congestive Heart Failure: No Hx Hypertension: Yes Hx Hypercholesterolemia: No Hx Pacemaker: No HX Cerebrovascular Accident: No Hx Seizures: No Hx Dementia: No Hx Diabetes: No Hx Gastrointestinal Disorders: No Hx Liver Disease: No Hx Genitourinary Disorders: No Hx Sexually Transmitted Disorders: No Hx Renal Disease (ESRD): No Hx Thyroid Disease: No Hx Human Immunodeficiency Virus (HIV): No (Last tested: 2016: NEGATIVE.) Hx Hepatitis C: No (Last tested: 06/2015: NEGATIVE.) Hx Depression: No Hx Suicide Attempt: No (denies) Hx Bipolar Disorder: No Hx Schizophrenia: No - Patient Surgical History Past Surgical History: No Hx Neurologic Surgery: No Hx Cataract Extraction: No Hx Cardiac Surgery: No Hx Lung Surgery: No Hx Breast Surgery: No Hx Breast Biopsy: No Hx Abdominal Surgery: No Hx Appendectomy: No Hx Cholecystectomy: No Hx Genitourinary Surgery: No Hx Section: No Hx Orthopedic Surgery: No Anesthesia Reaction: No - PPD History Previous Implant?: Yes Documented Results: Negative w/proof Date: 09/10/17 Results: 0 mm PPD to be Administered?: No - Smoking Cessation Smoking history: Former smoker Have you smoked in the past 12 months: No Aproximately how many cigarettes per day: 0 (stopped 1 year ago ) If you are a former smoker, when did you quit?: at age 25 Cigars Per Day: 0 Hx Chewing Tobacco Use: No Initiated information on smoking cessation: Yes 'Breaking Loose' booklet given: 05/31/18 - Substance & Tx. History Hx Alcohol Use: Yes Hx Substance Use: Yes Substance Use Type: Alcohol Hx Substance Use Treatment: Yes (10/21/17 - 10/21/17 [facility]) - Substances Abused Alcohol Route: Oral Frequency: Daily Amount used: 2 pints vodka Age of first use: 19 Date of Last Use: 05/31/18 Family Disease History - Family Disease History Family Disease History: Heart Disease: Mother (OA, Alcoholism; HTN), Other: Father (alcoholism), Mother Admission Physical Exam [facility] - Vital Signs Vital Signs: Vital Signs - 24 hr 05/31/18 15:44 Temperature 98.5 F Pulse Rate 91 H Respiratory 20 Rate Blood Pressure 136/92 - Physical General Appearance: Yes: Disheveled, Thin, Sweating, Anxious HEENTM: Yes: EOMI, Hearing grossly Normal, Normal ENT Inspection, Normocephalic , Normal Voice, SERGEI, Pharynx Normal, Tm's normal Respiratory: Yes: Chest Non-Tender, Lungs Clear, Normal Breath Sounds, No Respiratory Distress, No Accessory Muscle Use Neck: Yes: No masses,lesions,Nodules, Trachea in good position Breast: Yes: Breast Exam Deferred Cardiology: Yes: Regular Rhythm, Regular Rate Abdominal: Yes: Normal Bowel Sounds, Non Tender, Flat, Soft Genitourinary: Yes: Within Normal Limits Back: Yes: Normal Inspection Musculoskeletal: Yes: full range of Motion, Gait Steady, Pelvis Stable Extremities: Yes: Normal Capillary Refill, Normal Inspection, Normal Range of Motion, Non-Tender Neurological: Yes: features editor II-XII NML intact, Fully Oriented, Alert, Motor Strength 5/5, Normal Mood/Affect Integumentary: Yes: Normal Color, Warm, Diaphoresis Lymphatic: Yes: Within Normal Limits - Diagnostic (1) Cocaine dependence, uncomplicated Current Visit: Yes Status: Acute (2) Alcohol dependence with uncomplicated withdrawal Current Visit: Yes Status: Acute (3) Hypertension Current Visit: Yes Status: Chronic Qualifiers: Hypertension type: essential hypertension Cleared for Admission [facility] - Detox or Rehab [facility] Level of Care: Medically Managed Detox Regimen/Protocol: Librium [facility] Breath Alcohol Content Breath Alcohol Content: 0.015 Urine Drug Screen - Results Drug Screen Negative: No Urine Drug Screen Results: CRISTOFER-Cocaine, BZO-Benzodiazepines
[2018-05-31] MEDS ORDERED: P-EPHED 60MG/TRIPROLIDI 2.5MG TABLET PO PRN (19:16)
[2018-05-31] MEDS ORDERED: guaiFENesin/D-METHORPHAN HB 10 ML UNIT-DOSE CUPS PO PRN (19:16)
[2018-05-31] MEDS ORDERED: chlordiazePOXIDE HCL 25 MG CAPSULE PO PRN (19:16)
[2018-05-31] MEDS ORDERED: MENTHOL/PHENOL 1 EACH UD MM PRN (19:16)
[2018-05-31] MEDS ORDERED: MAG HYDROX/AL HYDROX/SIMETH 30 ML UNIT-DOSE CUP PO PRN (19:16)
[2018-05-31] MEDS ORDERED: MAGNESIUM CITRATE 300 ML BOTTLE PO PRN (19:16)
[2018-05-31] MEDS ORDERED: MAGNESIUM HYDROX 2400MG/30ML ORAL SUSPENSION 30 ML CUP PO PRN (19:16)
[2018-05-31] MEDS ORDERED: ACETAMINOPHEN 325 MG TABLET (FP) PO PRN (19:16)
[2018-05-31] MEDS ORDERED: hydrOXYzine PAMOATE 50 MG CAPSULE (FP) PO PRN (19:16)
[2018-05-31] MEDS ORDERED: LOPERAMIDE HCL 2 MG CAPSULE PO PRN (19:16)
[2018-05-31] MEDS ORDERED: IBUPROFEN 400 MG TABLET (FP) PO PRN (19:16)
[2018-05-31] MEDS ORDERED: LISINOPRIL 20 MG TABLET (FP) PO SCH (19:30)
[2018-05-31] MEDS ORDERED: chlordiazePOXIDE HCL 25 MG CAPSULE PO ONE (19:45)
--- NOTE | 2018-05-31 21:20 | PN ---
[facility] Progress Note Note: abnormal EKG: AFib, Prolong QT, vent rate: 78 BPM, QT/QTC 440/501. V/S 152/102, P69, RR18, T97.0 Patient Aox3 in no distress no adventitious breath sounds no JVD s1, s2 full ROM ambulating in the unit Patient was given upon arrival on the until Lisinopril 20mg QD. When compared with last EKG from August 2017, major changes present. Plan: Patient send to [facility] for further evaluation via [facility], endorsed to Dr. Dianne Espinosa.
[2018-05-31] MEDS ORDERED: MELATONIN 5 MG TABLETS PO PRN (22:00)
[2018-05-31] MEDS ORDERED: THIAMINE HCL 100 MG TABLET (FP) PO SCH (22:00)
[2018-05-31] MEDS: chlordiazePOXIDE HCL 25 MG CAPSULE PO SCH (23:58)
[2018-06-01 06:15] VITALS: BP 125/79; PULSE 60; TEMP 97.6
[2018-06-01] MEDS: chlordiazePOXIDE HCL 25 MG CAPSULE PO SCH (06:52)
[2018-06-01] MEDS ORDERED: PRENATAL VITAMINS W/ FOLIC ACID TABLET (FP) PO SCH (10:00)
--- NOTE | 2018-06-01 12:24 | PN ---
S Progress Note Note: THIS PT WAS NEVER SEEN BY THIS [employer] ADVISOR HE ALREADY SIGNED OUT AMA AND LEFT THE UNIT .
--- NOTE | 2018-06-01 12:26 | DS ---
[facility] Detox Discharge Summary Admission Date: 05/31/18 Discharge Date: 06/01/18 - History Additional Comments: PT SIGNED OUT AMA. PLEASE SEE NURSES NOTES. Pertinent Past History: PLEASE SEE DX BELOW - Physical Exam Results Vital Signs: Vital Signs Temperature 97.6 F 06/01/18 06:15 Pulse Rate 60 06/01/18 06:15 Respiratory Rate 18 06/01/18 06:47 Blood Pressure 125/79 06/01/18 06:15 O2 Sat by Pulse Oximetry (%) Pertinent Admission Physical Exam Findings: ADMITTED DUE TO WITHDRAWAL SX NO LABS - Medication Discharge Medications: Ambulatory Orders Lisinopril 20 mg PO DAILY 05/31/18 - Diagnosis (1) Alcohol dependence with uncomplicated withdrawal Status: Acute (2) Cocaine dependence, uncomplicated Status: Acute (3) Hypertension Status: Chronic Qualifiers: Hypertension type: essential hypertension Qualified Code(s): I10 - Essential (primary) hypertension (4) Nicotine dependence Status: Acute Qualifiers: Nicotine product type: cigarettes Substance use status: in withdrawal Qualified Code(s): F17.213 - Nicotine dependence, cigarettes, with withdrawal - AMA Did Patient Leave Against Medical Advice: Yes (AMA)
--- NOTE | 2018-06-01 12:48 | EKG ---
Test Reason : Blood Pressure : / mmHG Vent. Rate : 078 BPM Atrial Rate : 061 BPM P-R Int : 000 ms QRS Dur : 092 ms QT Int : 440 ms P-R-T Axes : 000 -19 043 degrees QTc Int : 501 ms ATRIAL FIBRILLATION PROLONGED QT ABNORMAL ECG WHEN COMPARED WITH ECG OF 19-OCT-2017 15:27, ATRIAL FIBRILLATION HAS REPLACED SINUS RHYTHM Confirmed by VEGA BOLTON MD ([id number]) on 06/01/2018 12:47:30 PM Referred By: Confirmed By:VEGA BOLTON MD
[2018-06-01] MEDS ORDERED: chlordiazePOXIDE HCL 25 MG CAPSULE PO SCH (23:00)
[2018-06-02] MEDS ORDERED: chlordiazePOXIDE 5 MG CAPSULE PO SCH (23:00)
[2018-06-03] MEDS ORDERED: chlordiazePOXIDE HCL 10 MG CAPSULE PO SCH (23:00)
== END 2018-06-01 08:21 | disposition left against medical advice (07) | DRG 770 ==
LOC: YASAS 15:08 → Y3N 18:41
PROVIDERS: ADMIT Surgery; ATTEND Surgery
PROC: HZ2ZZZZ Detoxification Services for Substance Abuse Treatment (ICD-10-PCS; principal; 2018-05-31)
DX: F10.230 Alcohol dependence with withdrawal, uncomplicated (principal); F14.20 Cocaine dependence, uncomplicated; F17.213 Nicotine dependence, cigarettes, with withdrawal; I10 Essential (primary) hypertension; Z59.0 Homelessness
CPT/HCPCS: 93005; 93010

== ENCOUNTER 2021-01-15 15:31 | Inpatient (IN) | payer OTHER ==
[2021-01-15 18:52] VITALS: BMI 27.4
[2021-01-16] MEDS ORDERED: IBUPROFEN 400 MG TABLET (FP) PO PRN (02:41)
[2021-01-16] MEDS ORDERED: guaiFENesin 200 MG/10 ML 10 ML UNIT-DOSE CUPS PO PRN (02:41)
[2021-01-16] MEDS ORDERED: MAG HYDROX/AL HYDROX/SIMETH 30 ML UNIT-DOSE CUP PO PRN (02:41)
[2021-01-16] MEDS ORDERED: MAGNESIUM HYDROX 2400MG/30ML ORAL SUSPENSION 30 ML CUP PO PRN (02:41)
[2021-01-16] MEDS ORDERED: MAGNESIUM CITRATE 300 ML BOTTLE PO PRN (02:41)
[2021-01-16] MEDS ORDERED: LOPERAMIDE HCL 2 MG CAPSULE PO PRN (02:41)
[2021-01-16] MEDS ORDERED: P-EPHED 60MG/TRIPROLIDI 2.5MG TABLET PO PRN (02:41)
[2021-01-16] MEDS ORDERED: TUBERCULIN PPD 5 TU/0.1ML VIAL ID ONE (03:52)
[2021-01-16] MEDS: PRENATAL VITAMINS W/ FOLIC ACID TABLET (FP) PO SCH (10:48)
[2021-01-16] MEDS: LISINOPRIL 20 MG TABLET PO SCH (10:48)
[2021-01-16 13:47] LABS: POTASSIUM 3.5 mmol/L (3.5-5.1)
[2021-01-16 13:55] LABS: HEMATOCRIT 40.5 % (35.4-49); HEMOGLOBIN 13.4 GM/dL (11.7-16.9); MCH 31.2 pg (25.7-33.7); MEAN CELL VOLUME 94.4 fl (80-96); MEAN PLT VOLUME 9.4 fl (7.5-11.1); PLATELET COUNT 192 K/MM3 (134-434); RBC 4.29 M/mm3 (4.00-5.60); RDW 14.1 % (11.9-15.9); WHITE BLOOD COUNT 5.4 K/mm3 (4.0-10.0)
[2021-01-16 14:01] LABS: BLOOD UREA NITROGEN 15.2 mg/dL (7-18)
[2021-01-16 14:04] LABS: ALBUMIN 3.4 g/dl (3.4-5.0); CREATININE 0.9 mg/dL (0.55-1.3)
[2021-01-16 14:06] LABS: TOT PROT 6.5 g/dl (6.4-8.2)
[2021-01-16 14:08] LABS: BILIRUBIN,TOTAL 1.3 mg/dL (0.2-1); CALCIUM 8.9 mg/dL (8.5-10.1)
[2021-01-16] MEDS: MELATONIN 5 MG TABLETS PO SCH (21:41)
[2021-01-16] MEDS: THIAMINE HCL 100 MG TABLET (FP) PO SCH (21:41)
[2021-01-17] MEDS: PRENATAL VITAMINS W/ FOLIC ACID TABLET (FP) PO SCH (10:21)
[2021-01-17] MEDS: LISINOPRIL 20 MG TABLET PO SCH (10:21)
[2021-01-17] MEDS: ACETAMINOPHEN 325 MG TABLET (FP) PO PRN (10:47)
[2021-01-17] MEDS: MELATONIN 5 MG TABLETS PO SCH (21:25)
[2021-01-17] MEDS: THIAMINE HCL 100 MG TABLET (FP) PO SCH (21:25)
[2021-01-18] MEDS: LISINOPRIL 20 MG TABLET PO SCH (10:00)
[2021-01-18] MEDS: CHOLECALCIFEROL (VIT D3) 1,000 UNIT (25 MCG) TABLET PO SCH (10:00)
[2021-01-18] MEDS: PRENATAL VITAMINS W/ FOLIC ACID TABLET (FP) PO SCH (10:00)
[2021-01-18] MEDS: ACETAMINOPHEN 325 MG TABLET (FP) PO PRN (15:27)
[2021-01-18 18:09] LABS: URINE APPEARANCE CLEAR; URINE BILIRUBIN NEGATIVE (NEGATIVE); URINE COLOR YELLOW; URINE GLUCOSE (UA) NEGATIVE (NEGATIVE); URINE KETONE NEGATIVE (NEGATIVE); URINE LEUK ESTERASE NEGATIVE (NEGATIVE); URINE NITRITE NEGATIVE (NEGATIVE); URINE PROTEIN NEGATIVE (NEGATIVE); URINE UROBILINOGEN 0.2 mg/dL (0.2-1.0)
[2021-01-18] MEDS: THIAMINE HCL 100 MG TABLET (FP) PO SCH (21:53)
[2021-01-18] MEDS: MELATONIN 5 MG TABLETS PO SCH (21:53)
[2021-01-19] MEDS: PRENATAL VITAMINS W/ FOLIC ACID TABLET (FP) PO SCH (09:01)
[2021-01-19] MEDS: LISINOPRIL 20 MG TABLET PO SCH (09:01)
[2021-01-19] MEDS: CHOLECALCIFEROL (VIT D3) 1,000 UNIT (25 MCG) TABLET PO SCH (09:01)
[2021-01-19] MEDS: ACETAMINOPHEN 325 MG TABLET (FP) PO PRN ×2 (09:01→20:02)
[2021-01-19] MEDS: THIAMINE HCL 100 MG TABLET (FP) PO SCH (21:53)
[2021-01-19] MEDS: MELATONIN 5 MG TABLETS PO SCH (21:53)
[2021-01-20] MEDS: CHOLECALCIFEROL (VIT D3) 1,000 UNIT (25 MCG) TABLET PO SCH (10:24)
[2021-01-20] MEDS: PRENATAL VITAMINS W/ FOLIC ACID TABLET (FP) PO SCH (10:24)
[2021-01-20] MEDS: ACETAMINOPHEN 325 MG TABLET (FP) PO PRN (10:26)
[2021-01-20] MEDS: LISINOPRIL 20 MG TABLET PO SCH (10:27)
[2021-01-20] MEDS ORDERED: cloNIDine HCL 0.1 MG TABLET PO ONE (11:30)
[2021-01-20 15:24] LABS: HIV INTERPRETATION NEGATIVE (NEGATIVE)
[2021-01-20] MEDS: THIAMINE HCL 100 MG TABLET (FP) PO SCH (23:32)
[2021-01-20] MEDS: MELATONIN 5 MG TABLETS PO SCH (23:32)
[2021-01-21] MEDS ORDERED: LISINOPRIL 20 MG TABLET PO SCH ×2 (06:00)
[2021-01-21] MEDS: CHOLECALCIFEROL (VIT D3) 1,000 UNIT (25 MCG) TABLET PO SCH (10:33)
[2021-01-21] MEDS: PRENATAL VITAMINS W/ FOLIC ACID TABLET (FP) PO SCH (10:33)
[2021-01-21] MEDS: LISINOPRIL 20 MG TABLET PO SCH (10:33)
[2021-01-21] MEDS: MELATONIN 5 MG TABLETS PO SCH (22:04)
[2021-01-21] MEDS: THIAMINE HCL 100 MG TABLET (FP) PO SCH (22:05)
[2021-01-22] MEDS: PRENATAL VITAMINS W/ FOLIC ACID TABLET (FP) PO SCH (10:07)
[2021-01-22] MEDS: CHOLECALCIFEROL (VIT D3) 1,000 UNIT (25 MCG) TABLET PO SCH (10:07)
[2021-01-22] MEDS: LISINOPRIL 20 MG TABLET PO SCH (10:08)
[2021-01-22 20:39] VITALS: TEMP 97.5
[2021-01-22] MEDS: MELATONIN 5 MG TABLETS PO SCH (21:37)
[2021-01-22] MEDS: THIAMINE HCL 100 MG TABLET (FP) PO SCH (21:37)
[2021-01-23 07:19] VITALS: BP 144/109; PULSE 71
== END 2021-01-23 09:08 | disposition home or self-care (01) | DRG 772 ==
LOC: YASAS 15:31 → Y3W 01-16 02:31
PROVIDERS: ADMIT Allergy & Immunology; ATTEND Allergy & Immunology
PROC: HZ42ZZZ Group Counseling for Substance Abuse Treatment, Cognitive-Behavioral (ICD-10-PCS; principal; 2021-01-16)
DX: F10.20 Alcohol dependence, uncomplicated (principal); F14.20 Cocaine dependence, uncomplicated; E55.9 Vitamin D deficiency, unspecified; I10 Essential (primary) hypertension; Z87.891 Personal history of nicotine dependence; Z56.0 Unemployment, unspecified; Z59.0 Homelessness
CPT/HCPCS: 36415; 80053; 81003; 85027; 86780; 87389; 93005; 93010; C9803; U0003

== ENCOUNTER 2023-01-05 16:53 | Inpatient (IN) | payer OTHER ==
[2023-01-05 17:47] VITALS: BMI 25.7
[2023-01-05] MEDS ORDERED: MAGNESIUM HYDROX 2400MG/30ML ORAL SUSPENSION 30 ML CUP PO PRN (19:44)
[2023-01-05] MEDS ORDERED: chlordiazePOXIDE HCL 25 MG CAPSULE PO PRN (19:44)
[2023-01-05] MEDS ORDERED: MAG HYDROX/AL HYDROX/SIMETH 30 ML UNIT-DOSE CUP PO PRN (19:44)
[2023-01-05] MEDS ORDERED: IBUPROFEN 600 MG TABLET (FP) PO PRN (19:44)
[2023-01-05] MEDS ORDERED: DICYCLOMINE HCL 10 MG CAPSULE PO PRN (19:44)
[2023-01-05] MEDS ORDERED: BISMUTH SUBSALICYLATE 524 MG/30 ML PO PRN (19:44)
[2023-01-05] MEDS ORDERED: POLYETHYLENE GLYCOL (HEALTHYLAX) 3350 17 GM PACKET PO PRN (19:44)
[2023-01-05] MEDS ORDERED: ACETAMINOPHEN 325 MG TABLET (FP) PO PRN (19:44)
[2023-01-05] MEDS ORDERED: ONDANSETRON *ODT* 4 MG TABLET SL PRN (19:44)
[2023-01-05] MEDS ORDERED: IBUPROFEN 400 MG TABLET (FP) PO PRN (19:44)
[2023-01-05] MEDS ORDERED: LOPERAMIDE HCL 2 MG CAPSULE PO PRN (19:44)
[2023-01-05] MEDS ORDERED: NALOXONE HCL (KLOXXADO) 8 MG SPRAY NS PRN (19:44)
[2023-01-05] MEDS ORDERED: BENZOCAINE/MENTHOL (CHLORASEPTIC ) LOZENGE MM PRN (19:44)
[2023-01-05] MEDS: chlordiazePOXIDE HCL 25 MG CAPSULE PO SCH (22:19)
[2023-01-05] MEDS: THIAMINE HCL 100 MG TABLET (FP) PO SCH (22:19)
[2023-01-05] MEDS: MELATONIN 5 MG TABLETS PO SCH (22:21)
[2023-01-06] MEDS: chlordiazePOXIDE HCL 25 MG CAPSULE PO SCH (05:56)
[2023-01-06] MEDS ORDERED: LORazepam 1 MG TABLET PO PRN (10:08)
[2023-01-06] MEDS: PRENATAL VITAMINS W/ FOLIC ACID TABLET (FP) PO SCH (10:40)
[2023-01-06] MEDS: LISINOPRIL 20 MG TABLET PO SCH (10:41)
[2023-01-06] MEDS: METHOCARBAMOL 500 MG TABLET PO PRN (10:41)
[2023-01-06] MEDS: LORazepam 2 MG TABLET PO SCH ×3 (10:41→22:38)
[2023-01-06 10:59] LABS: HEMATOCRIT 36.7 % (35.4-49); HEMOGLOBIN 12.6 GM/dL (11.7-16.9); MCH 31.7 pg (25.7-33.7); MCHC 34.2 g/dl (32.0-35.9); MEAN CELL VOLUME 92.7 fl (80-96); MEAN PLT VOLUME 8.7 fl (7.5-11.1); PLATELET COUNT 202 10^3/uL (134-434); RBC 3.96 M/mm3 (4.00-5.60); RDW 14.1 % (11.9-15.9); WHITE BLOOD COUNT 4.2 K/mm3 (4.0-10.0)
[2023-01-06 11:49] LABS: ALBUMIN 3.1 g/dl (3.4-5.0); BLOOD UREA NITROGEN 10.8 mg/dL (7-18)
[2023-01-06 11:51] LABS: CALCIUM 8.7 mg/dL (8.5-10.1)
[2023-01-06 11:55] LABS: CREATININE 0.7 mg/dL (0.55-1.3)
[2023-01-06 11:56] LABS: BILIRUBIN,TOTAL 0.7 mg/dL (0.2-1); TOT PROT 5.9 g/dl (6.4-8.2)
[2023-01-06] MEDS ORDERED: cloNIDine HCL 0.1 MG TABLET PO ONE (15:03)
[2023-01-06] MEDS: MELATONIN 5 MG TABLETS PO SCH (22:39)
[2023-01-06] MEDS: THIAMINE HCL 100 MG TABLET (FP) PO SCH (22:39)
[2023-01-07] MEDS ORDERED: chlordiazePOXIDE HCL 25 MG CAPSULE PO SCH (05:00)
[2023-01-07] MEDS: LORazepam 2 MG TABLET PO SCH ×4 (06:29→22:13)
[2023-01-07] MEDS ORDERED: cloNIDine HCL 0.1 MG TABLET PO ONE ×2 (06:33→09:30)
[2023-01-07] MEDS: LISINOPRIL 20 MG TABLET PO SCH (09:34)
[2023-01-07] MEDS: PRENATAL VITAMINS W/ FOLIC ACID TABLET (FP) PO SCH (09:34)
[2023-01-07] MEDS: HYDROCHLOROTHIAZIDE 25 MG TABLET (FP) PO SCH (13:21)
[2023-01-07] MEDS: THIAMINE HCL 100 MG TABLET (FP) PO SCH (22:13)
[2023-01-07] MEDS: MELATONIN 5 MG TABLETS PO SCH (22:15)
[2023-01-08] MEDS ORDERED: chlordiazePOXIDE HCL 10 MG CAPSULE PO PRN
[2023-01-08] MEDS ORDERED: chlordiazePOXIDE HCL 10 MG CAPSULE PO SCH (05:00)
[2023-01-08] MEDS: LORazepam 1 MG TABLET PO SCH ×4 (06:09→22:59)
[2023-01-08] MEDS: PRENATAL VITAMINS W/ FOLIC ACID TABLET (FP) PO SCH (10:14)
[2023-01-08] MEDS: HYDROCHLOROTHIAZIDE 25 MG TABLET (FP) PO SCH (10:14)
[2023-01-08] MEDS: METHOCARBAMOL 500 MG TABLET PO PRN (10:14)
[2023-01-08] MEDS: LISINOPRIL 20 MG TABLET PO SCH (10:15)
[2023-01-08] MEDS: ACETAMINOPHEN 325 MG TABLET (FP) PO PRN (21:12)
[2023-01-08] MEDS: MELATONIN 5 MG TABLETS PO SCH (22:59)
[2023-01-08] MEDS: THIAMINE HCL 100 MG TABLET (FP) PO SCH (22:59)
[2023-01-09] MEDS ORDERED: LORazepam 0.5 MG TABLET PO PRN
[2023-01-09] MEDS ORDERED: chlordiazePOXIDE HCL 10 MG CAPSULE PO SCH (05:00)
[2023-01-09] MEDS: LORazepam 0.5 MG TABLET PO SCH ×5 (06:00→23:04)
[2023-01-09] MEDS: PRENATAL VITAMINS W/ FOLIC ACID TABLET (FP) PO SCH (10:43)
[2023-01-09] MEDS: HYDROCHLOROTHIAZIDE 25 MG TABLET (FP) PO SCH (10:43)
[2023-01-09] MEDS: LISINOPRIL 20 MG TABLET PO SCH (10:43)
[2023-01-09 14:14] VITALS: RESP 18
[2023-01-09] MEDS: METHOCARBAMOL 500 MG TABLET PO PRN (17:54)
[2023-01-09] MEDS: THIAMINE HCL 100 MG TABLET (FP) PO SCH (23:05)
[2023-01-09] MEDS: MELATONIN 5 MG TABLETS PO SCH (23:05)
[2023-01-10] MEDS ORDERED: LORazepam 0.5 MG TABLET PO ONE (05:00)
[2023-01-10] MEDS ORDERED: chlordiazePOXIDE HCL 10 MG CAPSULE PO ONE (05:00)
[2023-01-10 06:14] VITALS: TEMP 97.7
[2023-01-10] MEDS: ACETAMINOPHEN 325 MG TABLET (FP) PO PRN (07:54)
[2023-01-10 08:30] VITALS: BP 141/101; PULSE 98
== END 2023-01-10 08:54 | disposition home or self-care (01) | DRG 774 ==
LOC: YASAS 16:53 → Y6N 20:08
PROVIDERS: ADMIT Allergy & Immunology; ATTEND Surgery
PROC: HZ2ZZZZ Detoxification Services for Substance Abuse Treatment (ICD-10-PCS; principal; 2023-01-05)
DX: F10.230 Alcohol dependence with withdrawal, uncomplicated (principal); F14.20 Cocaine dependence, uncomplicated; I10 Essential (primary) hypertension; Z87.891 Personal history of nicotine dependence; Z20.822 Contact with and (suspected) exposure to COVID-19; Z99.89 Dependence on other enabling machines and devices; Z28.310 Unvaccinated for COVID-19; Z28.9 Immunization not carried out for unspecified reason; Z56.0 Unemployment, unspecified; Z59.00 Homelessness unspecified
CPT/HCPCS: 36415; 80053; 85027; 86780; 93005; 93010; C9803-CS; U0003; U0005

== ENCOUNTER 2023-06-27 11:03 | Inpatient (IN) | payer OTHER ==
[2023-06-27 11:46] VITALS: BMI 26.6
[2023-06-27] MEDS ORDERED: POLYETHYLENE GLYCOL (HEALTHYLAX) 3350 17 GM PACKET PO PRN (15:20)
[2023-06-27] MEDS ORDERED: IBUPROFEN 400 MG TABLET (FP) PO PRN (15:20)
[2023-06-27] MEDS ORDERED: MAGNESIUM HYDROX 2400MG/30ML ORAL SUSPENSION 30 ML CUP PO PRN (15:20)
[2023-06-27] MEDS ORDERED: NALOXONE HCL (KLOXXADO) 8 MG SPRAY NS PRN (15:20)
[2023-06-27] MEDS ORDERED: MAG HYDROX/AL HYDROX/SIMETH 30 ML UNIT-DOSE CUP PO PRN (15:20)
[2023-06-27] MEDS ORDERED: LOPERAMIDE HCL 2 MG CAPSULE PO PRN (15:20)
[2023-06-27] MEDS ORDERED: IBUPROFEN 600 MG TABLET (FP) PO PRN (15:20)
[2023-06-27] MEDS ORDERED: guaiFENesin 600 MG TABLET.ER (FP) PO PRN (15:20)
[2023-06-27] MEDS ORDERED: BENZOCAINE/MENTHOL (CHLORASEPTIC ) LOZENGE MM PRN (15:20)
[2023-06-27] MEDS ORDERED: BISMUTH SUBSALICYLATE 524 MG/30 ML PO PRN (15:20)
[2023-06-27] MEDS ORDERED: NALOXONE HCL 0.4 MG/ML VIAL IM PRN (15:20)
[2023-06-27] MEDS ORDERED: BENZONATATE 200 MG CAPSULE PO PRN (15:20)
[2023-06-27] MEDS ORDERED: METHOCARBAMOL 500 MG TABLET PO PRN (15:20)
[2023-06-27] MEDS ORDERED: ONDANSETRON *ODT* 4 MG TABLET SL PRN (15:20)
[2023-06-27] MEDS ORDERED: hydrOXYzine PAMOATE 25 MG CAPSULE (FP) PO PRN (15:20)
[2023-06-27] MEDS ORDERED: ACETAMINOPHEN 325 MG TABLET (FP) PO PRN (15:20)
[2023-06-27] MEDS ORDERED: DICYCLOMINE HCL 10 MG CAPSULE PO PRN (15:20)
[2023-06-27] MEDS ORDERED: MELATONIN 5 MG TABLETS PO SCH (22:00)
[2023-06-27] MEDS ORDERED: THIAMINE HCL 100 MG TABLET (FP) PO SCH (22:00)
[2023-06-28] MEDS ORDERED: PRENATAL VITAMINS W/ FOLIC ACID TABLET (FP) PO SCH (10:00)
[2023-06-28 11:59] LABS: HEMATOCRIT 38.4 % (35.4-49); HEMOGLOBIN 12.6 GM/dL (11.7-16.9); MCH 30.6 pg (25.7-33.7); MCHC 32.7 g/dl (32.0-35.9); MEAN CELL VOLUME 93.6 fl (80-96); MEAN PLT VOLUME 8.3 fl (7.5-11.1); PLATELET COUNT 221 10^3/uL (134-434); RBC 4.11 M/mm3 (4.00-5.60); RDW 14.3 % (11.9-15.9); WHITE BLOOD COUNT 4.5 K/mm3 (4.0-10.0)
[2023-06-28 12:33] LABS: CALCIUM 8.7 mg/dL (8.5-10.1)
[2023-06-28 12:34] LABS: ALBUMIN 2.8 g/dl (3.4-5.0); BLOOD UREA NITROGEN 9.1 mg/dL (7-18)
[2023-06-28 12:36] LABS: CREATININE 0.8 mg/dL (0.55-1.3)
[2023-06-28 12:41] LABS: BILIRUBIN,TOTAL 0.6 mg/dL (0.2-1); TOT PROT 6.3 g/dl (6.4-8.2)
[2023-06-28 12:50] VITALS: BP 126/76; PULSE 77; RESP 18; TEMP 97.3
[2023-06-28] MEDS ORDERED: LACTULOSE 20 GM/30 ML UDC (FOR ORAL USE ONLY) PO STA (14:35)
[2023-06-29] MEDS ORDERED: LISINOPRIL 20 MG TABLET PO SCH (10:00)
== END 2023-06-28 15:46 | disposition other institution (70) | DRG 774 ==
LOC: SUATTDRO 11:03 → YASAS 11:03 → Y3N 16:37
PROVIDERS: ADMIT Allergy & Immunology; ATTEND Allergy & Immunology
PROC: HZ2ZZZZ Detoxification Services for Substance Abuse Treatment (ICD-10-PCS; principal; 2023-06-27)
DX: F10.20 Alcohol dependence, uncomplicated (principal); F14.20 Cocaine dependence, uncomplicated; I10 Essential (primary) hypertension; Z87.891 Personal history of nicotine dependence; Z28.310 Unvaccinated for COVID-19; Z28.9 Immunization not carried out for unspecified reason; Z59.00 Homelessness unspecified
CPT/HCPCS: 36415; 80053; 82140; 85027; 86780; 87635

== ENCOUNTER 2023-06-28 15:58 | Inpatient (IN) | payer OTHER ==
[2023-06-28] MEDS ORDERED: hydrOXYzine PAMOATE 25 MG CAPSULE (FP) PO PRN (18:11)
[2023-06-28] MEDS ORDERED: guaiFENesin 600 MG TABLET.ER (FP) PO PRN (18:11)
[2023-06-28] MEDS ORDERED: METHOCARBAMOL 500 MG TABLET PO PRN (18:11)
[2023-06-28] MEDS ORDERED: COLLOIDAL OATMEAL 1 BAR EACH TP PRN (18:11)
[2023-06-28] MEDS ORDERED: BENZOCAINE/MENTHOL (CHLORASEPTIC ) LOZENGE MM PRN (18:11)
[2023-06-28] MEDS ORDERED: IBUPROFEN 600 MG TABLET (FP) PO PRN (18:11)
[2023-06-28] MEDS ORDERED: IBUPROFEN 400 MG TABLET (FP) PO PRN (18:11)
[2023-06-28] MEDS ORDERED: NALOXONE HCL 0.4 MG/ML VIAL IVPUSH PRN (18:11)
[2023-06-28] MEDS ORDERED: LOPERAMIDE HCL 2 MG CAPSULE PO PRN (18:11)
[2023-06-28] MEDS ORDERED: BENZONATATE 200 MG CAPSULE PO PRN (18:11)
[2023-06-28] MEDS ORDERED: MAG HYDROX/AL HYDROX/SIMETH 30 ML UNIT-DOSE CUP PO PRN (18:11)
[2023-06-28] MEDS ORDERED: POLYETHYLENE GLYCOL (HEALTHYLAX) 3350 17 GM PACKET PO PRN (18:11)
[2023-06-28] MEDS ORDERED: AMMONIUM LACTATE 12% LOTION 225 GM BOTTLE TP PRN (18:11)
[2023-06-28] MEDS ORDERED: NICOTINE POLACRILEX 2 MG GUM BUC PRN (18:11)
[2023-06-28] MEDS ORDERED: NALOXONE HCL (KLOXXADO) 8 MG SPRAY NS PRN (18:11)
[2023-06-28] MEDS ORDERED: MAGNESIUM HYDROX 2400MG/30ML ORAL SUSPENSION 30 ML CUP PO PRN (18:11)
[2023-06-28 22:11] VITALS: RESP 18
[2023-06-28] MEDS: MELATONIN 5 MG TABLETS PO SCH (22:19)
[2023-06-28] MEDS: LACTULOSE 20 GM/30 ML UDC (FOR ORAL USE ONLY) PO SCH (22:19)
[2023-06-28] MEDS: THIAMINE HCL 100 MG TABLET (FP) PO SCH (22:19)
[2023-06-29] MEDS: LACTULOSE 20 GM/30 ML UDC (FOR ORAL USE ONLY) PO SCH ×3 (06:50→23:21)
[2023-06-29] MEDS: PRENATAL VITAMINS W/ FOLIC ACID TABLET (FP) PO SCH (10:12)
[2023-06-29] MEDS: MELATONIN 5 MG TABLETS PO SCH (23:21)
[2023-06-29] MEDS: THIAMINE HCL 100 MG TABLET (FP) PO SCH (23:21)
[2023-06-30] MEDS: LACTULOSE 20 GM/30 ML UDC (FOR ORAL USE ONLY) PO SCH ×3 (07:56→21:00)
[2023-06-30] MEDS: PRENATAL VITAMINS W/ FOLIC ACID TABLET (FP) PO SCH (10:22)
[2023-06-30] MEDS: MELATONIN 5 MG TABLETS PO SCH (21:00)
[2023-06-30] MEDS: THIAMINE HCL 100 MG TABLET (FP) PO SCH (21:00)
[2023-07-01] MEDS: LACTULOSE 20 GM/30 ML UDC (FOR ORAL USE ONLY) PO SCH ×3 (07:03→21:03)
[2023-07-01 08:07] VITALS: TEMP 96.9
[2023-07-01] MEDS: PRENATAL VITAMINS W/ FOLIC ACID TABLET (FP) PO SCH (10:19)
[2023-07-01] MEDS: THIAMINE HCL 100 MG TABLET (FP) PO SCH (21:03)
[2023-07-01] MEDS: MELATONIN 5 MG TABLETS PO SCH (21:03)
[2023-07-02] MEDS: LACTULOSE 20 GM/30 ML UDC (FOR ORAL USE ONLY) PO SCH ×3 (07:53→21:52)
[2023-07-02 10:44] VITALS: BP 120/86; PULSE 91
[2023-07-02] MEDS: PRENATAL VITAMINS W/ FOLIC ACID TABLET (FP) PO SCH (10:44)
[2023-07-02] MEDS ORDERED: ACETAMINOPHEN 325 MG TABLET (FP) PO ONE (16:59)
[2023-07-02] MEDS: MELATONIN 5 MG TABLETS PO SCH (21:52)
[2023-07-02] MEDS: THIAMINE HCL 100 MG TABLET (FP) PO SCH (21:53)
[2023-07-03] MEDS: LACTULOSE 20 GM/30 ML UDC (FOR ORAL USE ONLY) PO SCH (07:00)
[2023-07-03] MEDS: PRENATAL VITAMINS W/ FOLIC ACID TABLET (FP) PO SCH (11:12)
== END 2023-07-03 08:45 | disposition left against medical advice (07) | DRG 770 ==
LOC: YASAS 15:58 → Y5N 16:00
PROVIDERS: ADMIT Allergy & Immunology; ATTEND Psychiatry & Neurology Pain Medicine
PROC: HZ42ZZZ Group Counseling for Substance Abuse Treatment, Cognitive-Behavioral (ICD-10-PCS; principal; 2023-06-28)
DX: F10.20 Alcohol dependence, uncomplicated (principal); F14.20 Cocaine dependence, uncomplicated; E72.20 Disorder of urea cycle metabolism, unspecified; I10 Essential (primary) hypertension; Z87.891 Personal history of nicotine dependence; Z59.00 Homelessness unspecified
CPT/HCPCS: 82140

== ENCOUNTER 2023-08-21 14:20 | Inpatient (IN) | payer OTHER ==
[2023-08-21 15:35] VITALS: BMI 27.7
[2023-08-21] MEDS ORDERED: METHOCARBAMOL 500 MG TABLET PO PRN (16:30)
[2023-08-21] MEDS ORDERED: IBUPROFEN 400 MG TABLET (FP) PO PRN (16:30)
[2023-08-21] MEDS ORDERED: NALOXONE HCL (KLOXXADO) 8 MG SPRAY NS PRN (16:30)
[2023-08-21] MEDS ORDERED: ONDANSETRON *ODT* 4 MG TABLET SL PRN (16:30)
[2023-08-21] MEDS ORDERED: LOPERAMIDE HCL 2 MG CAPSULE PO PRN (16:30)
[2023-08-21] MEDS ORDERED: ACETAMINOPHEN 325 MG TABLET (FP) PO PRN (16:30)
[2023-08-21] MEDS ORDERED: MAG HYDROX/AL HYDROX/SIMETH 30 ML UNIT-DOSE CUP PO PRN (16:30)
[2023-08-21] MEDS ORDERED: diazePAM 5 MG TABLET PO PRN (16:30)
[2023-08-21] MEDS ORDERED: DICYCLOMINE HCL 10 MG CAPSULE PO PRN (16:30)
[2023-08-21] MEDS ORDERED: NALOXONE HCL 0.4 MG/ML VIAL IM PRN (16:30)
[2023-08-21] MEDS ORDERED: BENZOCAINE/MENTHOL (CHLORASEPTIC ) LOZENGE MM PRN (16:30)
[2023-08-21] MEDS ORDERED: POLYETHYLENE GLYCOL (HEALTHYLAX) 3350 17 GM PACKET PO PRN (16:30)
[2023-08-21] MEDS ORDERED: hydrOXYzine PAMOATE 25 MG CAPSULE (FP) PO PRN (16:30)
[2023-08-21] MEDS ORDERED: BENZONATATE 200 MG CAPSULE PO PRN (16:30)
[2023-08-21] MEDS ORDERED: BISMUTH SUBSALICYLATE 524 MG/30 ML PO PRN (16:30)
[2023-08-21] MEDS ORDERED: IBUPROFEN 600 MG TABLET (FP) PO PRN (16:30)
[2023-08-21] MEDS ORDERED: guaiFENesin 600 MG TABLET.ER (FP) PO PRN (16:30)
[2023-08-21] MEDS ORDERED: MAGNESIUM HYDROX 2400MG/30ML ORAL SUSPENSION 30 ML CUP PO PRN (16:30)
[2023-08-21] MEDS ORDERED: diazePAM 5 MG TABLET ONE (18:09)
[2023-08-21] MEDS: diazePAM 5 MG TABLET PO SCH ×2 (18:11→23:10)
[2023-08-21] MEDS ORDERED: cloNIDine HCL 0.1 MG TABLET PO PRN (18:34)
[2023-08-21] MEDS: amLODIPine BESYLATE 5 MG TABLET (FP) PO SCH (19:04)
[2023-08-21] MEDS: MELATONIN 5 MG TABLETS PO SCH (23:09)
[2023-08-21] MEDS: THIAMINE HCL 100 MG TABLET (FP) PO SCH (23:10)
[2023-08-22] MEDS: diazePAM 5 MG TABLET PO SCH ×4 (05:58→23:18)
[2023-08-22] MEDS: PRENATAL VITAMINS W/ FOLIC ACID TABLET (FP) PO SCH (10:50)
[2023-08-22] MEDS: amLODIPine BESYLATE 5 MG TABLET (FP) PO SCH (10:50)
[2023-08-22] MEDS: THIAMINE HCL 100 MG TABLET (FP) PO SCH (23:18)
[2023-08-22] MEDS: MELATONIN 5 MG TABLETS PO SCH (23:18)
[2023-08-23] MEDS: diazePAM 5 MG TABLET PO SCH ×3 (05:50→23:20)
[2023-08-23] MEDS: PRENATAL VITAMINS W/ FOLIC ACID TABLET (FP) PO SCH (10:20)
[2023-08-23] MEDS: amLODIPine BESYLATE 5 MG TABLET (FP) PO SCH (10:20)
[2023-08-23 17:10] VITALS: RESP 18
[2023-08-23] MEDS: MELATONIN 5 MG TABLETS PO SCH (23:20)
[2023-08-23] MEDS: THIAMINE HCL 100 MG TABLET (FP) PO SCH (23:21)
[2023-08-24] MEDS ORDERED: diazePAM 5 MG TABLET PO SCH (06:00)
[2023-08-24 06:10] VITALS: BP 146/96; PULSE 69; TEMP 98
[2023-08-25] MEDS ORDERED: diazePAM 5 MG TABLET PO ONE (06:00)
== END 2023-08-24 08:04 | disposition home or self-care (01) | DRG 774 ==
LOC: YASAS 14:20 → Y3N 17:20
PROVIDERS: ADMIT Allergy & Immunology; ATTEND Surgery
PROC: HZ2ZZZZ Detoxification Services for Substance Abuse Treatment (ICD-10-PCS; principal; 2023-08-21)
DX: F10.230 Alcohol dependence with withdrawal, uncomplicated (principal); F14.20 Cocaine dependence, uncomplicated; I10 Essential (primary) hypertension; Z28.310 Unvaccinated for COVID-19; Z28.9 Immunization not carried out for unspecified reason; Z59.00 Homelessness unspecified
CPT/HCPCS: 87635

== ENCOUNTER 2023-09-20 14:36 | Inpatient (IN) | payer OTHER ==
[2023-09-20 16:44] VITALS: BMI 25.7
[2023-09-20] MEDS ORDERED: MAGNESIUM HYDROX 2400MG/30ML ORAL SUSPENSION 30 ML CUP PO PRN (18:45)
[2023-09-20] MEDS ORDERED: guaiFENesin 600 MG TABLET.ER (FP) PO PRN (18:45)
[2023-09-20] MEDS ORDERED: LOPERAMIDE HCL 2 MG CAPSULE PO PRN (18:45)
[2023-09-20] MEDS ORDERED: MAG HYDROX/AL HYDROX/SIMETH 30 ML UNIT-DOSE CUP PO PRN (18:45)
[2023-09-20] MEDS ORDERED: IBUPROFEN 600 MG TABLET (FP) PO PRN (18:45)
[2023-09-20] MEDS ORDERED: COLLOIDAL OATMEAL 1 BAR EACH TP PRN (18:45)
[2023-09-20] MEDS ORDERED: NALOXONE HCL 0.4 MG/ML VIAL IM PRN (18:45)
[2023-09-20] MEDS ORDERED: POLYETHYLENE GLYCOL (HEALTHYLAX) 3350 17 GM PACKET PO PRN (18:45)
[2023-09-20] MEDS ORDERED: IBUPROFEN 400 MG TABLET (FP) PO PRN (18:45)
[2023-09-20] MEDS ORDERED: hydrOXYzine PAMOATE 25 MG CAPSULE (FP) PO PRN (18:45)
[2023-09-20] MEDS ORDERED: NALOXONE HCL (KLOXXADO) 8 MG SPRAY NS PRN (18:45)
[2023-09-20] MEDS ORDERED: BENZONATATE 200 MG CAPSULE PO PRN (18:45)
[2023-09-20] MEDS ORDERED: BENZOCAINE/MENTHOL (CHLORASEPTIC ) LOZENGE MM PRN (18:45)
[2023-09-20] MEDS ORDERED: ACETAMINOPHEN 325 MG TABLET (FP) PO PRN (18:45)
[2023-09-20] MEDS: MELATONIN 5 MG TABLETS PO SCH (23:02)
[2023-09-20] MEDS: THIAMINE HCL 100 MG TABLET (FP) PO SCH (23:02)
[2023-09-21] MEDS: PRENATAL VITAMINS W/ FOLIC ACID TABLET (FP) PO SCH (11:03)
[2023-09-21] MEDS: amLODIPine BESYLATE 10 MG TABLET (FP) PO SCH (11:03)
[2023-09-21 11:41] LABS: PH,URINE 6.5 (5.0-8.0); URINE APPEARANCE CLEAR; URINE BILIRUBIN NEGATIVE (NEGATIVE); URINE COLOR YELLOW; URINE GLUCOSE (UA) NEGATIVE (NEGATIVE); URINE KETONE NEGATIVE (NEGATIVE); URINE LEUK ESTERASE NEGATIVE (NEGATIVE); URINE NITRITE NEGATIVE (NEGATIVE); URINE PROTEIN NEGATIVE (NEGATIVE)
[2023-09-21 15:07] LABS: CHLORIDE 109 mmol/L (98-107); SODIUM 143 mmol/L (136-145)
[2023-09-21 15:08] LABS: HEMATOCRIT 40.3 % (35.4-49); HEMOGLOBIN 12.7 GM/dL (11.7-16.9); MCH 29.3 pg (25.7-33.7); MCHC 31.6 g/dl (32.0-35.9); MEAN CELL VOLUME 92.6 fl (80-96); MEAN PLT VOLUME 8.7 fl (7.5-11.1); PLATELET COUNT 238 10^3/uL (134-434); RBC 4.35 M/mm3 (4.00-5.60); RDW 13.7 % (11.9-15.9); WHITE BLOOD COUNT 4.3 K/mm3 (4.0-10.0)
[2023-09-21 15:11] LABS: CALCIUM 8.8 mg/dL (8.5-10.1)
[2023-09-21 15:12] LABS: ALBUMIN 3.2 g/dl (3.4-5.0); ANION GAP 6 mmol/L (4-13); BLOOD UREA NITROGEN 12.6 mg/dL (7-18); CO2 27 mmol/L (21-32); GLUCOSE,RANDOM 99 mg/dL (74-106)
[2023-09-21 15:15] LABS: CREATININE 0.8 mg/dL (0.55-1.3); SGOT/AST 22 U/L (15-37); SGPT/ALT 28 U/L (13-61)
[2023-09-21 15:17] LABS: BILIRUBIN,TOTAL 1.4 mg/dL (0.2-1); TOT PROT 6.6 g/dl (6.4-8.2)
[2023-09-21 15:18] LABS: ALK PHOS 86 U/L (45-117)
[2023-09-21] MEDS ORDERED: cloNIDine HCL 0.1 MG TABLET PO PRN (16:01)
[2023-09-21] MEDS: THIAMINE HCL 100 MG TABLET (FP) PO SCH (21:28)
[2023-09-21] MEDS: MELATONIN 5 MG TABLETS PO SCH (21:28)
[2023-09-22] MEDS ORDERED: HYDROCHLOROTHIAZIDE 12.5 MG CAPSULE (FP) PO SCH (10:00)
[2023-09-22] MEDS: PRENATAL VITAMINS W/ FOLIC ACID TABLET (FP) PO SCH (10:25)
[2023-09-22] MEDS: amLODIPine BESYLATE 10 MG TABLET (FP) PO SCH (10:25)
[2023-09-22] MEDS: MELATONIN 5 MG TABLETS PO SCH (21:28)
[2023-09-22] MEDS: THIAMINE HCL 100 MG TABLET (FP) PO SCH (21:29)
[2023-09-23 07:03] VITALS: BP 153/105; PULSE 81; RESP 17; TEMP 97.3
[2023-09-23] MEDS ORDERED: HYDROCHLOROTHIAZIDE 25 MG TABLET (FP) PO SCH (10:00)
== END 2023-09-23 09:39 | disposition left against medical advice (07) | DRG 770 ==
LOC: YASAS 14:36 → Y3W 22:21
PROVIDERS: ADMIT Allergy & Immunology; ATTEND Psychiatry & Neurology Pain Medicine
PROC: HZ42ZZZ Group Counseling for Substance Abuse Treatment, Cognitive-Behavioral (ICD-10-PCS; principal; 2023-09-20)
DX: F14.20 Cocaine dependence, uncomplicated (principal); F13.10 Sedative, hypnotic or anxiolytic abuse, uncomplicated; I10 Essential (primary) hypertension; F91.8 Other conduct disorders; Z91.199 Patient's noncompliance with other medical treatment and regimen due to unspecified reason; Z87.891 Personal history of nicotine dependence; Z59.02 Unsheltered homelessness
CPT/HCPCS: 36415; 80053; 80307; 81003; 85027; 86780; 87635; 87811

== ENCOUNTER 2024-05-04 14:05 | Inpatient (IN) | payer OTHER ==
[2024-05-04 14:45] VITALS: BMI 27.4
[2024-05-04] MEDS ORDERED: BISMUTH SUBSALICYLATE 524 MG/30 ML PO PRN (15:52)
[2024-05-04] MEDS ORDERED: POLYETHYLENE GLYCOL (HEALTHYLAX) 3350 17 GM PACKET PO PRN (15:52)
[2024-05-04] MEDS ORDERED: METHOCARBAMOL 500 MG TABLET PO PRN (15:52)
[2024-05-04] MEDS ORDERED: guaiFENesin 600 MG TABLET.ER (FP) PO PRN (15:52)
[2024-05-04] MEDS ORDERED: BENZONATATE 200 MG CAPSULE PO PRN (15:52)
[2024-05-04] MEDS ORDERED: ONDANSETRON *ODT* 4 MG TABLET SL PRN (15:52)
[2024-05-04] MEDS ORDERED: MAG HYDROX/AL HYDROX/SIMETH 30 ML UNIT-DOSE CUP PO PRN (15:52)
[2024-05-04] MEDS ORDERED: BENZOCAINE/MENTHOL (CHLORASEPTIC ) LOZENGE MM PRN (15:52)
[2024-05-04] MEDS ORDERED: DICYCLOMINE HCL 10 MG CAPSULE PO PRN (15:52)
[2024-05-04] MEDS ORDERED: IBUPROFEN 600 MG TABLET (FP) PO PRN (15:52)
[2024-05-04] MEDS ORDERED: LOPERAMIDE HCL 2 MG CAPSULE PO PRN (15:52)
[2024-05-04] MEDS ORDERED: MAGNESIUM HYDROX 2400MG/30ML ORAL SUSPENSION 30 ML CUP PO PRN (15:52)
[2024-05-04] MEDS ORDERED: IBUPROFEN 400 MG TABLET (FP) PO PRN (15:52)
[2024-05-04] MEDS: amLODIPine BESYLATE 5 MG TABLET (FP) PO ONE (17:30)
[2024-05-04] MEDS ORDERED: amLODIPine BESYLATE 5 MG TABLET (FP) ONE (18:05)
[2024-05-04] MEDS: hydrOXYzine PAMOATE 25 MG CAPSULE (FP) PO PRN (19:10)
[2024-05-04] MEDS: METOPROLOL TARTRATE 25 MG TABLET (FP) PO ONE (20:07)
[2024-05-04] MEDS: MELATONIN 5 MG TABLETS PO SCH (22:56)
[2024-05-04] MEDS: THIAMINE 100 MG TABLET PO SCH (22:56)
[2024-05-05] MEDS: PRENATAL VITAMINS W/ FOLIC ACID TABLET (FP) PO SCH (10:48)
[2024-05-05 11:44] LABS: HEMOGLOBIN 12.5 GM/dL (11.7-16.9); MCH 30.6 pg (25.7-33.7); MCHC 32.8 g/dl (32.0-35.9); MEAN CELL VOLUME 93.3 fl (80-96); PLATELET COUNT 161 10^3/uL (134-434); RBC 4.07 M/mm3 (4.00-5.60); RDW 13.4 % (11.9-15.9); WHITE BLOOD COUNT 4.7 K/mm3 (4.0-10.0)
[2024-05-05 12:32] LABS: POTASSIUM 3.9 mmol/L (3.5-5.1)
[2024-05-05 12:34] LABS: BLOOD UREA NITROGEN 10.5 mg/dL (7-18); CALCIUM 8.9 mg/dL (8.5-10.1)
[2024-05-05 12:38] LABS: CREATININE 0.7 mg/dL (0.55-1.3)
[2024-05-05 12:39] LABS: BILIRUBIN,TOTAL 0.6 mg/dL (0.2-1)
[2024-05-05] MEDS: amLODIPine BESYLATE 5 MG TABLET (FP) PO SCH (12:59)
[2024-05-05] MEDS: ACETAMINOPHEN 325 MG TABLET (FP) PO PRN (13:01)
[2024-05-05] MEDS: POVIDONE-IODINE 10% SOLN 118 ML BOTTLE TP ONE (20:49)
[2024-05-06 21:35] VITALS: TEMP 98.6
[2024-05-07 05:57] VITALS: RESP 16
[2024-05-07 08:59] VITALS: BP 136/92; PULSE 80
== END 2024-05-07 10:50 | disposition other institution (70) | DRG 774 ==
LOC: YASAS 14:05 → Y3N 16:38
PROVIDERS: ADMIT Allergy & Immunology; ATTEND Surgery
PROC: HZ2ZZZZ Detoxification Services for Substance Abuse Treatment (ICD-10-PCS; principal; 2024-05-04)
DX: F10.230 Alcohol dependence with withdrawal, uncomplicated (principal); F14.20 Cocaine dependence, uncomplicated; I10 Essential (primary) hypertension
CPT/HCPCS: 36415; 80053; 80305; 85027; 86780; 93005; 93010

== ENCOUNTER 2024-05-07 10:43 | Inpatient (IN) | payer OTHER ==
[2024-05-07] MEDS ORDERED: IBUPROFEN 600 MG TABLET (FP) PO PRN (11:33)
[2024-05-07] MEDS ORDERED: MAGNESIUM HYDROX 2400MG/30ML ORAL SUSPENSION 30 ML CUP PO PRN (11:33)
[2024-05-07] MEDS ORDERED: IBUPROFEN 400 MG TABLET (FP) PO PRN (11:33)
[2024-05-07] MEDS ORDERED: guaiFENesin 600 MG TABLET.ER (FP) PO PRN (11:33)
[2024-05-07] MEDS ORDERED: POLYETHYLENE GLYCOL (HEALTHYLAX) 3350 17 GM PACKET PO PRN (11:33)
[2024-05-07] MEDS ORDERED: NALOXONE (NARCAN) HCL 4 MG/0.1 ML SPRAY NS PRN (11:33)
[2024-05-07] MEDS ORDERED: BENZONATATE 200 MG CAPSULE PO PRN (11:33)
[2024-05-07] MEDS ORDERED: METHOCARBAMOL 500 MG TABLET PO PRN (11:33)
[2024-05-07] MEDS ORDERED: NALOXONE HCL 0.4 MG/ML VIAL IVPUSH PRN (11:33)
[2024-05-07] MEDS ORDERED: LOPERAMIDE HCL 2 MG CAPSULE PO PRN (11:33)
[2024-05-07] MEDS ORDERED: BENZOCAINE/MENTHOL (CHLORASEPTIC ) LOZENGE MM PRN (11:33)
[2024-05-07] MEDS ORDERED: MAG HYDROX/AL HYDROX/SIMETH 30 ML UNIT-DOSE CUP PO PRN (11:33)
[2024-05-07] MEDS ORDERED: hydrOXYzine PAMOATE 25 MG CAPSULE (FP) PO PRN (11:33)
[2024-05-07] MEDS: TUBERCULIN PPD 5 TU/0.1ML SYRINGE (IN PATIENT USE ONLY) ID ONE (15:18)
[2024-05-07] MEDS: THIAMINE 100 MG TABLET PO SCH (21:16)
[2024-05-07] MEDS: MELATONIN 5 MG TABLETS PO SCH (21:16)
[2024-05-08] MEDS: amLODIPine BESYLATE 5 MG TABLET (FP) PO SCH (10:50)
[2024-05-08] MEDS: PRENATAL VITAMINS W/ FOLIC ACID TABLET (FP) PO SCH (10:50)
[2024-05-09] MEDS: ACETAMINOPHEN 325 MG TABLET (FP) PO PRN (13:06)
[2024-05-11 09:37] VITALS: RESP 18
[2024-05-11] MEDS: VITAMINS A AND D TOPICAL OINTMENT TP SCH (17:46)
[2024-05-15 06:30] VITALS: BP 149/105; PULSE 80; TEMP 97.8
== END 2024-05-15 08:57 | disposition home or self-care (01) | DRG 772 ==
LOC: YASAS 10:43 → Y3NR 10:44 → Y3W 05-08 12:46
PROVIDERS: ADMIT Allergy & Immunology; ATTEND Psychiatry & Neurology Pain Medicine
PROC: HZ42ZZZ Group Counseling for Substance Abuse Treatment, Cognitive-Behavioral (ICD-10-PCS; principal; 2024-05-07)
DX: F10.20 Alcohol dependence, uncomplicated (principal); F14.20 Cocaine dependence, uncomplicated; F13.10 Sedative, hypnotic or anxiolytic abuse, uncomplicated; I10 Essential (primary) hypertension; Z59.00 Homelessness unspecified
CPT/HCPCS: 87811

== ENCOUNTER 2024-08-11 10:29 | Inpatient (IN) | payer OTHER ==
[2024-08-11 10:57] VITALS: BMI 27.6
[2024-08-11] MEDS ORDERED: IBUPROFEN 600 MG TABLET (FP) PO PRN (11:42)
[2024-08-11] MEDS ORDERED: BISMUTH SUBSALICYLATE 524 MG/30 ML PO PRN (11:42)
[2024-08-11] MEDS ORDERED: DICYCLOMINE HCL 10 MG CAPSULE PO PRN (11:42)
[2024-08-11] MEDS ORDERED: METHOCARBAMOL 500 MG TABLET PO PRN (11:42)
[2024-08-11] MEDS ORDERED: BENZOCAINE/MENTHOL (CHLORASEPTIC ) LOZENGE MM PRN (11:42)
[2024-08-11] MEDS ORDERED: NALOXONE (NARCAN) HCL 4 MG/0.1 ML SPRAY NS PRN (11:42)
[2024-08-11] MEDS ORDERED: BENZONATATE 200 MG CAPSULE PO PRN (11:42)
[2024-08-11] MEDS ORDERED: MAGNESIUM HYDROX 2400MG/30ML ORAL SUSPENSION 30 ML CUP PO PRN (11:42)
[2024-08-11] MEDS ORDERED: IBUPROFEN 400 MG TABLET (FP) PO PRN (11:42)
[2024-08-11] MEDS ORDERED: ACETAMINOPHEN 325 MG TABLET (FP) PO PRN (11:42)
[2024-08-11] MEDS ORDERED: ONDANSETRON *ODT* 4 MG TABLET SL PRN (11:42)
[2024-08-11] MEDS ORDERED: hydrOXYzine PAMOATE 25 MG CAPSULE (FP) PO PRN (11:42)
[2024-08-11] MEDS ORDERED: POLYETHYLENE GLYCOL (HEALTHYLAX) 3350 17 GM PACKET PO PRN (11:42)
[2024-08-11] MEDS ORDERED: LOPERAMIDE HCL 2 MG CAPSULE PO PRN (11:42)
[2024-08-11] MEDS ORDERED: MAG HYDROX/AL HYDROX/SIMETH 30 ML UNIT-DOSE CUP PO PRN (11:42)
[2024-08-11] MEDS ORDERED: NALOXONE HCL 0.4 MG/ML VIAL IM PRN (11:42)
[2024-08-11] MEDS ORDERED: guaiFENesin 600 MG TABLET.ER (FP) PO PRN (11:42)
[2024-08-11] MEDS ORDERED: diazePAM 5 MG TABLET PO PRN (12:15)
[2024-08-11] MEDS ORDERED: amLODIPine BESYLATE 5 MG TABLET (FP) ONE (12:16)
[2024-08-11] MEDS: amLODIPine BESYLATE 10 MG TABLET (FP) PO SCH (12:18)
[2024-08-11] MEDS: diazePAM 5 MG TABLET PO ONE (12:59)
[2024-08-11] MEDS: diazePAM 5 MG TABLET PO SCH (17:31)
[2024-08-11] MEDS: THIAMINE 100 MG TABLET PO SCH (22:43)
[2024-08-11] MEDS: MELATONIN 5 MG TABLETS PO SCH (22:43)
[2024-08-12] MEDS: amLODIPine BESYLATE 10 MG TABLET (FP) PO SCH (08:01)
[2024-08-12 08:58] LABS: HEMATOCRIT 40.2 % (35.4-49); HEMOGLOBIN 12.9 GM/dL (11.7-16.9); MCH 30.9 pg (25.7-33.7); MEAN CELL VOLUME 96.3 fl (80-96); MEAN PLT VOLUME 8.9 fl (7.5-11.1); PLATELET COUNT 185 10^3/uL (134-434); RBC 4.18 M/mm3 (4.00-5.60); RDW 13.3 % (11.9-15.9); WHITE BLOOD COUNT 5.1 K/mm3 (4.0-10.0)
[2024-08-12 09:12] LABS: CALCIUM 9.3 mg/dL (8.5-10.1)
[2024-08-12 09:16] LABS: BLOOD UREA NITROGEN 12.5 mg/dL (7-18)
[2024-08-12 09:17] LABS: BILIRUBIN,TOTAL 0.9 mg/dL (0.2-1); TOT PROT 6.1 g/dl (6.4-8.2)
[2024-08-12 09:19] LABS: CREATININE 0.7 mg/dL (0.55-1.3)
[2024-08-12] MEDS: PRENATAL VITAMINS W/ FOLIC ACID TABLET (FP) PO SCH (10:22)
[2024-08-13] MEDS: diazePAM 5 MG TABLET PO SCH (05:59)
[2024-08-14] MEDS: diazePAM 5 MG TABLET PO SCH (05:48)
[2024-08-14] MEDS: LISINOPRIL 20 MG TABLET PO SCH (11:19)
[2024-08-15] MEDS: diazePAM 5 MG TABLET PO ONE (05:54)
[2024-08-15 06:07] VITALS: BP 124/85; PULSE 78; RESP 16; TEMP 97.8
[2024-08-18] MEDS ORDERED: cloNIDine-TTS 0.1 MG/24 HRS PATCH.TDWK TD SCH (10:00)
== END 2024-08-15 08:47 | disposition home or self-care (01) | DRG 774 ==
LOC: YASAS 10:29 → Y3N 11:59
PROVIDERS: ADMIT Allergy & Immunology; ATTEND Surgery
PROC: HZ2ZZZZ Detoxification Services for Substance Abuse Treatment (ICD-10-PCS; principal; 2024-08-11)
DX: F10.230 Alcohol dependence with withdrawal, uncomplicated (principal); F14.20 Cocaine dependence, uncomplicated; F13.20 Sedative, hypnotic or anxiolytic dependence, uncomplicated; I10 Essential (primary) hypertension; Z87.891 Personal history of nicotine dependence; Z59.00 Homelessness unspecified
CPT/HCPCS: 36415; 80053; 80305; 80307; 85027; 86780; 93005; 93010

== ENCOUNTER 2024-11-09 08:11 | Inpatient (IN) | payer OTHER ==
[2024-11-09 09:07] VITALS: BMI 26.9
[2024-11-09] MEDS ORDERED: NALOXONE (NARCAN) HCL 4 MG/0.1 ML SPRAY NS PRN (10:33)
[2024-11-09] MEDS ORDERED: guaiFENesin 600 MG TABLET.ER (FP) PO PRN (10:33)
[2024-11-09] MEDS ORDERED: BENZOCAINE/MENTHOL (CHLORASEPTIC ) LOZENGE MM PRN (10:33)
[2024-11-09] MEDS ORDERED: ACETAMINOPHEN 325 MG TABLET (FP) PO PRN (10:33)
[2024-11-09] MEDS ORDERED: POLYETHYLENE GLYCOL (HEALTHYLAX) 3350 17 GM PACKET PO PRN (10:33)
[2024-11-09] MEDS ORDERED: LOPERAMIDE HCL 2 MG CAPSULE PO PRN (10:33)
[2024-11-09] MEDS ORDERED: BENZONATATE 200 MG CAPSULE PO PRN (10:33)
[2024-11-09] MEDS ORDERED: IBUPROFEN 600 MG TABLET (FP) PO PRN (10:33)
[2024-11-09] MEDS ORDERED: MAG HYDROX/AL HYDROX/SIMETH 30 ML UNIT-DOSE CUP PO PRN (10:33)
[2024-11-09] MEDS ORDERED: hydrOXYzine PAMOATE 25 MG CAPSULE (FP) PO PRN (10:33)
[2024-11-09] MEDS ORDERED: IBUPROFEN 400 MG TABLET (FP) PO PRN (10:33)
[2024-11-09] MEDS ORDERED: MAGNESIUM HYDROX 2400MG/30ML ORAL SUSPENSION 30 ML CUP PO PRN (10:33)
[2024-11-09] MEDS ORDERED: cloNIDine HCL 0.1 MG TABLET ONE (11:10)
[2024-11-09] MEDS: cloNIDine HCL 0.1 MG TABLET PO ONE (11:13)
[2024-11-09] MEDS: LISINOPRIL 10 MG TABLET PO ONE (19:27)
[2024-11-09] MEDS ORDERED: METOPROLOL TARTRATE 25 MG TABLET (FP) PO ONE (21:37)
[2024-11-09] MEDS: MELATONIN 5 MG TABLETS PO SCH (23:08)
[2024-11-09] MEDS: THIAMINE 100 MG TABLET PO SCH (23:08)
[2024-11-09] MEDS: METOPROLOL TARTRATE 25 MG TABLET (FP) PO ONE (23:09)
[2024-11-10] MEDS: LISINOPRIL 20 MG TABLET PO SCH (11:02)
[2024-11-10] MEDS: PRENATAL VITAMINS W/ FOLIC ACID TABLET (FP) PO SCH (11:03)
[2024-11-10 11:19] VITALS: RESP 18
[2024-11-10 13:53] LABS: HEMATOCRIT 39.2 % (35.4-49); HEMOGLOBIN 13.1 GM/dL (11.7-16.9); MCH 31.2 pg (25.7-33.7); MCHC 33.4 g/dl (32.0-35.9); MEAN CELL VOLUME 93.2 fl (80-96); MEAN PLT VOLUME 9.1 fl (7.5-11.1); PLATELET COUNT 167 10^3/uL (134-434); RBC 4.21 M/mm3 (4.00-5.60); RDW 14.1 % (11.9-15.9); WHITE BLOOD COUNT 5.6 K/mm3 (4.0-10.0)
[2024-11-10 13:55] LABS: POTASSIUM 4.2 mmol/L (3.5-5.1)
[2024-11-10 14:09] LABS: CALCIUM 9.3 mg/dL (8.5-10.1)
[2024-11-10 14:10] LABS: ALBUMIN 3.6 g/dl (3.4-5.0); BLOOD UREA NITROGEN 7.9 mg/dL (7-18)
[2024-11-10 14:13] LABS: TOT PROT 6.8 g/dl (6.4-8.2)
[2024-11-13] MEDS: PSEUDOEPHEDRINE HCL 30 MG TABLET PO SCH (10:42)
[2024-11-13] MEDS: OXYMETAZOLINE 0.05% NASAL SOLUTION 15 ML BOTTLE NS PRN (18:22)
[2024-11-14 07:11] VITALS: PULSE 89; TEMP 97.1
[2024-11-14 10:13] VITALS: BP 130/82
[2024-11-14] MEDS ORDERED: LORATADINE 10 MG TABLET PO SCH (12:15)
[2024-11-14] MEDS ORDERED: NALOXONE (NYS OPIOID OVERDOSE PROGRAM) 4 MG/0.1 ML SPRAY NS SCH (14:00)
== END 2024-11-14 14:00 | disposition home or self-care (01) | DRG 772 ==
LOC: YASAS 08:11 → Y3NR 11:09 → Y5N 11-10 10:44
PROVIDERS: ADMIT Psychiatry & Neurology Pain Medicine; ATTEND Family Medicine Addiction Medicine
PROC: HZ42ZZZ Group Counseling for Substance Abuse Treatment, Cognitive-Behavioral (ICD-10-PCS; principal; 2024-11-09)
DX: F14.20 Cocaine dependence, uncomplicated (principal); F16.20 Hallucinogen dependence, uncomplicated; I10 Essential (primary) hypertension; Z87.891 Personal history of nicotine dependence; Z56.0 Unemployment, unspecified; Z59.00 Homelessness unspecified
CPT/HCPCS: 36415; 80053; 80305; 80307; 85027; 86780; 87811; 93005; 93010